=== PATIENT | female | born 1960 | race Caucasian/White ===

== ENCOUNTER 2016-12-15 20:01 | Inpatient (IN) | payer BC ==
[~2016-12-15] VITALS: Ht 160 cm; Wt 99.8 kg
[~2016-12-15 20:01] MED LIST: AMIT50TA3 PO; ASPI-1099 PO; DICY10CA13 PO; HYOS0.1286 PO; METO50TA5 PO; WARF2.5T73 PO; WARF5TAB6 PO
--- OUTSIDE RECORDS SUMMARY | 2016-12-15 20:06 | XMS REPORT | Continuity of Care Document ---
Author Author [facility] Organization [facility] Address Unknown Phone Unavailable Support Name Relationship Address Phone HUSSEIN NGUYỄN MD Caregiver [address] [place] [address] Unavailable PIOTR PANDYA MD Caregiver [address] [place] [address] Unavailable MALIAARLINE WASHINGTONELLE Next Of Kin [address] [place] [address] Insurance Providers Guarantor Nery Zepeda Address [address] [place] [address] Email [email or web address] [facility] Policy Number [id number] Subscriber's Name Nery Zepeda Relationship 18 Self Group Number [id number] Advance Directives Directive Response Recorded Date/Time Advanced Directives Type None 10/27/16 8:24pm Chief Complaint and Reason for Visit Chief Complaint Cough,Fever,Flu,URI Reason for Visit [id number] Problems Past Problems Medical Problem Onset Date Viral illness Unknown Medications Current Home Medications Medication Dose Units Route Directions Days Qty Instructions Start Date Amitriptyline Hcl 50 Mg Tablet 50 Mg Oral Bedtime 10/27/16 Aspirin (Gabriel Chewable) 81 Mg Tab.chew 81 Mg Oral Daily 10/27/16 Dicyclomine Hcl 10 Mg Capsule 10 Mg Oral Twice A Day 10/27/16 Hyoscyamine Sulfate 0.125 Mg Tablet 0.125 Mg Oral Twice A Day Metoprolol Tartrate 50 Mg Tablet 50 Mg Oral Twice Daily With Meals 10/27/16 Warfarin Sodium 2.5 Mg Tablet 2.5 Mg Oral Sumotuwethsa@Hs Warfarin Sodium 5 Mg Tablet 5 Mg Oral Fr@Hs 10/27/16 Social History Social History Problem Response Recorded Date/Time Onset Date Status Hx Substance Use No 10/27/2016 8:42pm Not Applicable Not Applicable Hx Alcohol Use Y OCCASIONALLY 10/27/2016 8:42pm Not Applicable Not Applicable Query Response Start Date Stop Date Smoking Status Former smoker Hospital Discharge Instructions No hospital discharge instructions. Plan of Care Discharge Date 10/27/16 9:40pm Disposition 01 DISCHARGED HOME, SELF-CARE Condition at Discharge Stable Instructions/Education Provided Viral Syndrome (ED) Prescriptions See Medication Section Referrals PIOTR PANDYA MD Address: [address] [place] [address] [phone] Additional Instructions/Education I do want you to take Tylenol and/or Motrin as needed for fever or body aches. Stay home from work until you are fever free for 24 hours without the use of the over the counter medications. If you are not improving in the next 2-3 days then please follow up with your primary care provider this week. Care Plan and Goals Physician Care Plan Problem:Viral Illness Goal: Follow up with primary care provider Instructions: Take medications and follow care plan as discussed/written Functional Status No functional status results. Allergies, Adverse Reactions, Alerts Allergen Type Severity Reaction Status Last Updated Diazepam Allergy Unknown Active 10/27/16 Doxycycline Allergy Unknown Active 10/27/16 adhesive tape Allergy Unknown Active 10/27/16 Immunizations Query Response on File Recorded Date/Time Influenza Vaccine Hx NOT REC'D 10/27/16 8:42pm Vital Signs Acute Vital Signs Vital Response Date/Time Temperature (Fahrenheit) 100.1 deg F (96.8 - 99.1) 10/27/2016 9:40pm Temperature (Calculated Celsius) 37.07326 degrees C (36.0 - 37.3) 10/27/2016 9:40pm Pulse Rate (adult) 123 bpm (60 - 100) 10/27/2016 9:40pm Respiratory Rate 18 breaths/min (10 - 20) 10/27/2016 9:40pm O2 Sat by Pulse Oximetry 98 % (90 - 100) 10/27/2016 9:40pm Blood Pressure 127/80 mm Hg 10/27/2016 9:40pm Results Laboratory Results Test Name Result Units Flags Reference Collection Date/Time Result Date/ Time Comments Influenza Type A Antigen NEGATIVE NEGATIVE 10/27/2016 8:45pm 2016 9:21pm Negative for Flu A protein antigen. Assay sensitivity is 90%. Influenza Type B Antigen NEGATIVE NEGATIVE 10/27/2016 8:45pm 2016 9:21pm Negative for Flu B protein antigen. Assay sensitivity is 90%. Procedures No known history of procedures. Encounters Encounter Location Arrival/Admit Date Discharge/Depart Date Attending Provider Departed Emergency Room [facility] 10/27/16 7:05pm 10/27/16 9: 40pm HUSSEIN NGUYỄN MD Recent Diagnosis
--- OUTSIDE RECORDS SUMMARY | 2016-12-15 20:06 | XMS REPORT | Referral Summary ---
Author Author [facility] Organization [facility] Address Unknown Phone Unavailable Care Team Providers Care Air Pollution Control Engineer Name Role Phone George Evans Primary Care Physician [phone] Encounter VC Date(s): 09/11/16 - 09/11/16 [facility] [address] [place] [address]- Discharge Diagnosis: Viral respiratory infection Discharge Diagnosis: Irritable bowel syndrome (disorder) Discharge Disposition: 01-Home or Self Care Attending Physician: Sabrina Babin APRN Admitting Physician: Sabrina Babin APRN Vital Signs Most recent to 1 oldest [Reference Range]: Temperature Tympanic 36.6 degC [36.6-38.1 degC] (09/11/16 9:03 AM) Peripheral Pulse 64 bpm Rate [60-100 bpm] (09/11/16 9:03 AM) Blood Pressure 122/80 mmHg [90-140/60-90 mmHg] (09/11/16 9:03 AM) Problem List Condition Effective Dates Status Health Status Informant 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 ) Chronic renal Resolved failure syndrome (disorder)(Confirmed ) Insomnia Resolved (disorder)(Confirmed ) Irritable bowel Active syndrome (disorder)(Confirmed ) Mitral valve Active disorder (disorder)(Confirmed ) Obesity(Confirmed) Active patient Obstructive sleep Active apnea syndrome (disorder)(Confirmed ) Allergies, Adverse Reactions, Alerts Substance Reaction Severity Status diazepam Hives/Skin Rash Active sweating/hives/rash doxycycline Hives/Skin Rash Active SEVERE N/V vomiting/hives/rash iodine RASH SOMETIMES - GETS PREMEDIC Active Tape Active Medications amitriptyline 50 mg oral tablet 50 mg 1 tabs, Oral, Bedtime (once a day), # 90 tabs, 0 Refill(s), Pharmacy: [id number], 1 tabs Oral Bedtime (once a day) Start Date: 09/11/16 Status: Ordered Coumadin Daily, as directed 2.5mg daily except for Fridays takes 5mg, 0 Refill(s) Start Date: 05/05/14 Status: Ordered dicyclomine 10 mg oral capsule 20 mg 2 caps, Oral, BID, # 60 caps, 6 Refill(s), Pharmacy: [id number], 2 caps Oral BID Start Date: 06/19/16 Status: Ordered Fasprin 81 mg, Oral, Daily, 0 Refill(s) Start Date: 05/05/14 Status: Ordered hyoscyamine 0 Refill(s) Start Date: 04/08/16 Status: Ordered metoprolol tartrate 25 mg oral tablet 25 mg 1 tabs, Oral, BID, # 180 tabs, 0 Refill(s) Start Date: 06/19/16 Status: Ordered Results No data available for this section Immunizations Given and Recorded Vaccine Date Status Refusal Reason influenza virus vaccine, inactivated 09/13/14 Recorded tetanus-diphth toxoids (Td) adult/adol 09/13/14 Recorded Procedures Procedure Date Related Diagnosis Body Site Gallbladder operation Hernia repair Hysterectomy Valves of heart and adjacent structures operations1 Wrist repair 1Aortic valve Social History Social History Type Response Smoking Status Former smoker; Type: Cigarettes1 1quit 2 years ago Assessment and Plan Extracted from: Title: Office Visit Note-IBS/URI Author: Sabrina Babin APRN Date: Assessment/Plan 1.Irritable bowel syndrome (disorder) Primarilydiarrhea-type with occasional constipation. Recommend stopping desipramine and trying a low-dose amitriptyline to see if that will work better for her. May need to consider SSRI. Recommend probiotic daily. Recommend Lomotil on days where she is having waterylooser stools. MiraLAX if she is feeling more constipated. Encourage her to monitor her diet and drink choices to see if that affects her stools. She has had gallbladdersurgery in the past and discussed how We' re foods tend to cause increased diarrhea/urgencyafter cholecystectomies. Encourage daily activity and exercise. Follow-up in one month to let us know how things are going. 2.Viral respiratory infection Recommend symptomatic care.
--- OUTSIDE RECORDS SUMMARY | 2016-12-15 20:06 | XMS REPORT | Referral Summary ---
Author Author [facility] Organization [facility] Address Unknown Phone Unavailable Care Team Providers Care Machine Taper Name Role Phone George Evans Primary Care Physician [phone] Encounter VC Date(s): 11/05/16 - 11/05/16 [facility] [address] [place] [address]- Discharge Diagnosis: Irritable bowel syndrome (disorder) Discharge Disposition: 01-Home or Self Care Attending Physician: Sabrina Babin APRN Admitting Physician: Sabrina Babin APRN Vital Signs Most recent to 1 oldest [Reference Range]: Temperature Tympanic 36.2 degC [36.6-38.1 degC] *LOW* (11/05/16 9:36 AM) Peripheral Pulse 68 bpm Rate [60-100 bpm] (11/05/16 9:36 AM) Blood Pressure 130/82 mmHg [90-140/60-90 mmHg] (11/05/16 9:36 AM) Problem List Condition Effective Dates Status [...] day), # 90 tabs, 0 Refill(s), Pharmacy: [id number], 1 tabs Oral Bedtime (once a day) Start Date: 09/11/16 Status: Ordered Coumadin Daily, as directed 2.5mg daily except for Fridays takes 5mg, 0 Refill(s) Start Date: 05/05/14 Status: Ordered dicyclomine 10 mg oral capsule 20 mg 2 caps, Oral, BID, # 60 caps, 6 Refill(s), Pharmacy: [id number], 2 caps Oral BID Start Date: 06/19/16 Status: Ordered Fasprin 81 mg, Oral, Daily, 0 Refill(s) Start Date: 05/05/14 Status: Ordered metoprolol tartrate 25 mg oral tablet 25 mg 1 tabs, Oral, BID, # 180 tabs, 0 Refill(s) Start Date: 06/19/16 Status: Ordered Results No data available for this section Immunizations Given and Recorded Vaccine Date Status Refusal Reason influenza virus vaccine, inactivated 09/13/14 Recorded tetanus-diphth toxoids (Td) adult/adol 09/13/14 Recorded Procedures Procedure Date Related Diagnosis Body Site Colonoscopy 06/17/10 Gallbladder operation Hernia repair Hysterectomy Valves of heart and adjacent structures operations1 Wrist repair 1Aortic valve Social History Social History Type Response Smoking Status Former smoker; Type: Cigarettes1 1quit 2 years ago Assessment and Plan Extracted from: Title: Office Visit Note-IBS Author: Sabrina Babin APRN Date: 11/05/16 Assessment/Plan 1.Irritable bowel syndrome (disorder) Discussed with the patient thatindeed IBS is afrustrating issue. Management starts with the dietary controlespecially after gallbladder removal. Very important to avoid high saturated fatmealsif she wants to avoid bowel urgency and loose stools. Encourage her to increase the overall fiber in her diet. Recommend starting MiraLAXhalf to one capful daily. Use consistently. Encourage fluid/water intake to avoid constipation. She did use Linzess for 2-3 days and hadloose stools related to that but did not stay on it for any period of time. Continue amitriptyline. Follow up if above not helpful.
--- OUTSIDE RECORDS SUMMARY | 2016-12-15 20:06 | XMS REPORT | Referral Summary ---
Author Author [facility] Organization [facility] Address Unknown Phone Unavailable Care Team Providers Care Soft Iron Inspector Name Role Phone George Evans Primary Care Physician [phone] Encounter VC Date(s): 06/19/16 - 06/19/16 [facility] [address] [place] [address]- Discharge Diagnosis: Mitral valve disorder (disorder) Discharge Diagnosis: Irritable bowel syndrome (disorder) Discharge Diagnosis: Thumb tendonitis Discharge Disposition: 01-Home or Self Care Attending Physician: Albert Evans MD Admitting Physician: Albert Evans MD Vital Signs Most recent to 1 oldest [Reference Range]: Temperature Tympanic 36.0 degC [36.6-38.1 degC] *LOW* (06/19/16 8:54 AM) Peripheral Pulse 76 bpm Rate [60-100 bpm] (06/19/16 8:54 AM) Respiratory Rate 16 br/min [14-20 br/min] (06/19/16 8:54 AM) Blood Pressure 140/92 mmHg [90-140/60-90 mmHg] (06/19/16 8:54 AM) Problem List Condition Effective Dates Status [...] - GETS PREMEDIC Active Tape Active Medications Coumadin Daily, as directed 2.5mg daily except for Fridays takes 5mg, 0 Refill(s) Start Date: 05/05/14 Status: Ordered desipramine Oral, 0 Refill(s) Start Date: 04/08/16 Status: Ordered dicyclomine 10 mg oral capsule 20 mg 2 caps, Oral, BID, # 60 caps, 6 Refill(s), Pharmacy: [id number], 2 caps Oral BID Start Date: 06/19/16 Status: Ordered Fasprin 81 mg, Oral, Daily, 0 Refill(s) Start Date: 05/05/14 Status: Ordered hyoscyamine 0 Refill(s) Start Date: 04/08/16 Status: Ordered meloxicam 15 mg oral tablet 15 mg 1 tabs, Oral, Daily, # 30 tabs, 0 Refill(s), Pharmacy: [id number], 1 tabs Oral Daily Start Date: 06/19/16 Status: Ordered metoprolol tartrate 25 mg oral tablet 25 mg 1 tabs, Oral, BID, # 180 tabs, 0 Refill(s) Start Date: 06/19/16 Status: Ordered Results No data available for this section Immunizations No data available for this section Procedures Procedure Date Related Diagnosis Body Site Gallbladder operation Hernia repair Hysterectomy Valves of heart and adjacent structures operations1 Wrist repair 1Aortic valve Social History Social History Type Response Smoking Status Former smoker; Type: Cigarettes1 1quit 2 years ago Assessment and Plan Extracted from: Title: Office Visit Note Author: Albert Evans MD Date: 06/19/16 Assessment/Plan 1.Irritable bowel syndrome (disorder) I reviewed her medications I recommended continuing those without change. She may use intermittent MiraLAX orImodium as neededdepending onwhether she may be having some constipation or diarrhea. I've encouraged her to follow-up on a every 6 month basis. 2.Mitral valve disorder (disorder) She sees her water analyst routinely and he follows her INR is no change in current treatment at this time. 3.Thumb tendonitis I've recommended trying some [id number] mg a day for the2-3 weeks. If not improving she should let us know. Perhaps some physical therapy would be appropriate and helpful. Warned that meloxicam can cause some stomach irritation I encouraged food and if it bothers her stomach at all especially in light of her anticoagulation therapy she should discontinue and let us know.
--- OUTSIDE RECORDS SUMMARY | 2016-12-15 20:06 | XMS REPORT | Continuity of Care Document ---
Author Author [facility] Organization [facility] Address Unknown Phone Unavailable Allergies Active Description Code Type Severity Reaction Onset Reported/Identified Relationship to Patient Clinical Status Yes No Allergy Information Drug Allergy 07/03/2010 Yes adhesive tape Drug Allergy REDAT SITE, SOMETIMES BLISTER 06/13/2012 Yes adhesive tape Drug Allergy N/A REDAT SITE, SOMETIMES BLISTER 06/13/2012 Yes doxycycline Drug Allergy SEVERE N/V 06/13/2012 Yes doxycycline Drug Allergy N/A SEVERE N/V 06/13/2012 Yes IV Contrast Drug Allergy RASH SOMETIMES - GETS PREMEDIC 06/13/2012 Yes IV Contrast Drug Allergy N/A RASH SOMETIMES - GETS PREMEDIC 06/13/2012 Yes Valium Drug Allergy PROFUSE SWEATING 06/13/2012 Yes Valium Drug Allergy N/A PROFUSE SWEATING 06/13/2012 Yes No Known Food Allergies Food Allergy 01/04/2013 Yes No Known Food Allergies Food Allergy N/A N/A 08/22/2013 Yes diazepam diazepam Drug Allergy Severe DIAPHORESIS 10/03/2014 Yes doxycycline doxycycline Drug Allergy Moderate GI UPSET WITH VOMITING 10/03/2014 Yes Iodinated Contrast Media - IV Dye Iodinated Contrast Media - IV Dye Drug Allergy Moderate HIVES/ITCHING 10/03/2014 Yes doxycycline Drug Allergy N/A N/A 11/29/2014 Yes Valium Drug Allergy N/A N/A 11/29/2014 Yes diazepam diazepam Drug Allergy Severe DIAPHORESIS 08/18/2015 Yes doxycycline doxycycline Drug Allergy Moderate GI UPSET WITH VOMITING 08/18/2015 Yes Iodinated Contrast Media - IV Dye Iodinated Contrast Media - IV Dye Drug Allergy Moderate HIVES/ITCHING 08/18/2015 Medications Problems Date Dx Coded Attending Type Code Diagnosis Diagnosed By 05/27/2012 Bruce Jimenez MD Final V72.83 PREOP EXAMINATION NEC 06/13/2012 Bruce Jimenez MD Final 424.1 AORTIC VALVE DISORDER 06/13/2012 Bruce Jimenez MD Final V72.63 PRE-PX LABORATORY EXAM 06/13/2012 Bruce Jimenez MD Final V72.81 PREOP CV EXAM 06/13/2012 Bruce Jimenez MD Final V72.83 PREOP EXAMINATION NEC 06/14/2012 BLESSING AVILA DO Final 285.1 ACUTE POSTHEMOR ANEMIA 06/14/2012 BLESSING AVILA DO Final 305.1 TOBACCO USE DISORDER 06/14/2012 BLESSING AVILA DO Final 327.23 OBSTRUCTIVE SLEEP APNEA 06/14/2012 BLESSING AVILA DO Final 401.9 HYPERTENSION NOS 06/14/2012 BLESSING AVILA DO Final 424.1 AORTIC VALVE DISORDER 06/14/2012 BLESSING AVILA DO Final 427.31 ATRIAL FIBRILLATION 06/14/2012 BLESSING AVILA DO Final 564.00 CONSTIPATION NOS 06/14/2012 BLESSING AVILA DO Final 564.1 IRRITABLE BOWEL SYNDROME 01/04/2013 Javier Bains DO Final 272.0 PURE HYPERCHOLESTEROLEM 01/04/2013 Javier Bains DO Final 491.9 CHRONIC BRONCHITIS NOS 01/04/2013 Javier Bains DO Final 842.00 WRIST SPRAIN NOS 01/04/2013 Javier Bains DO Final 923.21 CONTUSION OF WRIST 01/04/2013 Javier Bains DO Admitting 959.3 ELB/FOREARM/WR INJ NEC 01/04/2013 Javier Bains DO External E849.0 HOME ACCIDENTS 01/04/2013 Javier Bains DO External E885.9 FALL FROM TRIPPING NEC 01/04/2013 Javier Bains DO Final V43.3 HEART VALVE REPL NEC 08/22/2013 Griffin Vogel MD Final 401.9 HYPERTENSION NOS 08/22/2013 Griffin Vogel MD Final 429.9 HEART DISEASE NOS 08/22/2013 Griffin Vogel MD Final 786.52 PAINFUL RESPIRATION 08/22/2013 Griffin Vogel MD Final 789.02 LUQ ABDOMINAL PAIN 08/22/2013 Griffin Vogel MD Admitting 789.09 ABDOMINAL PAIN-SITE NEC 08/22/2013 Griffin Vogel MD Final V43.3 HEART VALVE REPL NEC 01/02/2014 Albert Khan MD 462 ACUTE PHARYNGITIS 01/02/2014 Albert Khan MD Final 490 BRONCHITIS NOS 01/02/2014 Albert Khan MD Admitting 786.2 COUGH 01/02/2014 Albert Khan MD Final 787.01 NAUSEA W VOMITING Procedures Code Description Performed By Performed On 35. REPL AORTIC VALVE NEC Tony CHEUNG, Bruce Hines 06/14/2012 39.61 EXTRACORPOREAL CIRCULAT Bruce Jimenez MD 06/14/2012 61713 X-RAY EXAM OF ANKLE 11/29/2014 [id number] MRI LOWER EXTREMITY W/O DYE 12/25/2014 Orthopedi Orthopaedic Surgery 04/16/2015 Results Test Result Range PROTHROMBIN TIME WITH INR - 06/07/15 16:40 INTERNATIONAL NORMAL RATIO 3.1 0.9-1.1 PROTHROMBIN TIME 35.8 sec 9.3-12.2 Microbiology CBC W/DIFF - 06/07/15 16:48 EOSINOPHIL # 0.2 k/cumm 0.1-0.5 EOSINOPHIL % 2 % 2-4 GRANULOCYTE # 4.5 k/cumm 2.0-9.0 GRANULOCYTE % 63 % 50-75 LYMPHOCYTE # 2.0 k/cumm 1.0-4.0 LYMPHOCYTE % 28 % 20-30 MEAN CELL HGB 27.6 pg 27.0-33.0 MEAN CELL HGB CONCENTRATION 32.3 g/dL 32.0-37.0 MEAN CELL VOLUME 85.4 fl 80.0-100.0 MONOCYTE # 0.4 k/cumm 0.1-1.0 MONOCYTE % 6 % 4-6 RED BLOOD CELL 4.60 m/cumm 4.00-6.00 RED CELL DISTRIBUTION WIDTH 14.6 % 11.0- 15.6 WHITE BLOOD CELL 7.1 k/cumm 5.0-10.0 HEMOGLOBIN 12.7 gm/dL 12.0-16.0 HEMATOCRIT 39.3 % 37.0-47.0 PLATELET COUNT 233 k/cumm 150-400 Microbiology PROTHROMBIN TIME WITH INR - 12/16/15 23:55 INTERNATIONAL NORMAL RATIO 4.0 0.9-1.1 PROTHROMBIN TIME 46.3 sec 9.3-12.2 Encounters ACCT No. Visit Date/Time Discharge Status Pt. Type Provider Facility Loc./Unit Complaint [id number] 01/02/2014 11:21:00 2013 13:25:00 DIS Emergency Bill CHEUNG, Albert Alegria [facility] [id number] 08/22/2013 08:25:00 2012 11:03:00 DIS Emergency Jaspreet CHEUNG, Griffin Alegria [facility] [id number] 01/04/2013 08:25:00 2012 10:30:00 DIS Emergency Javier Bains DO [facility] on [address] [id number] 06/14/2012 04:55:00 2011 13:32:00 DIS Inpatient BLESSING AVILA DO Via [address] [id number] 06/13/2012 05:00:00 2011 23:59:59 CLS Outpatient Bruce Jimenez MD [facility] [id number] 05/27/2012 10:55:00 2011 23:59:59 CLS Outpatient Bruce Jimenez MD [facility]
[2016-12-15] MEDS ORDERED: METO25TA6 PO (20:21)
[2016-12-15] MEDS ORDERED: LACT1CAP73 PO (20:22)
--- OUTSIDE RECORDS SUMMARY | 2016-12-15 21:36 | XMS REPORT | Continuity of Care Document ---
Author Author [facility] Organization [facility] Address Unknown Phone Unavailable Allergies Active Description [...] 39.61 EXTRACORPOREAL CIRCULAT Bruce Jimenez MD 06/14/2012 [id number] X-RAY EXAM OF ANKLE 11/29/2014 [id number] MRI LOWER EXTREMITY W/O DYE 12/25/2014 Orthopedi [...] Status Pt. Type Provider Facility Loc./Unit Complaint [id number] 01/02/2014 11:21:00 2013 13:25:00 DIS Emergency Bill CHEUNG, Albert Alegria [facility] [id number] 08/22/2013 08:25:00 2012 11:03:00 DIS Emergency Jaspreet CHEUNG, Griffin Alegria [facility] [id number] 01/04/2013 08:25:00 2012 10:30:00 DIS Emergency Javier Bains DO [facility] on [address] [id number] 06/14/2012 04:55:00 2011 13:32:00 DIS Inpatient BLESSING AVILA DO Via [address] [id number] 06/13/2012 05:00:00 2011 23:59:59 CLS Outpatient Bruce Jimenez MD [facility] [id number] 05/27/2012 10:55:00 2011 23:59:59 CLS Outpatient Bruce Jimenez MD [facility]
--- NOTE | 2016-12-15 21:37 | ERPDOC ---
Departure Disposition Decision Date: Dec 15, 2016 Disposition Decision Time: 22:45 (CHARLETTEMAME AYALA APRN) Disposition: 02 TO [facility] Impression Impression (HIDALGORYNE [place] APRN) Impression: Primary Impression: GI bleed GI bleed type/associated pathology: unspecified gastrointestinal hemorrhage type Qualified Codes: K92.2 - Gastrointestinal hemorrhage, unspecified Additional Impression: Anemia Anemia type: unspecified type Qualified Codes: D64.9 - Anemia, unspecified Severity: Moderate (MAME GALLAGHER APRN) Condition: Stable Seen By: Mid-level only (MAME GALLAGHER APRN) Referrals: PIOTR PANDYA MD (Family) Problems/Meds/Labs Reviewed?: Yes Medications reviewed and manag: Yes (MAME GALLAGHER APRN) Follow up care ordered?: Yes Mental Status: Alert, Oriented (MAME GALLAGHER APRN) Scripts Ferrous Sulfate (Feosol) 325 Mg Tablet 1 TAB PO WB, #60 TAB BEST WITH FOOD. Prov: MEJIA CHUN MD 12/18/16 Polyethylene Glycol 3350 (Miralax) 17 Gm Powd.pack 1 PACKET PO DAILY, #30 PACKET 3 Refills Prov: MEJIA CHUN MD 12/18/16 HPI - General Medical General Chief Complaint: Acute Medical Problem Stated Complaint: BLOODY STOOLS Time Seen by Provider: 21:21 Source: patient Exam Limitations: no limitations (CHARLETTEMAME AYALA APRN) Time Seen by Provider: 21:21 (JANUARY,[facility]) HPI - General Medical Initial Comments She had 3 stools yesterday that were bloody. She was evaluated in the office. Her INR was 2.7 and her hemoglobin as 11.0. Today has had 7 bloody stools. Has pictures on her phone showing stools with bright red blood in the water. She is noted to be pale but states that she always is pale. She has had some diaphoresis with her BM but denies any fever/vomiting/abdominal pain. She has never had trouble with a GI bleed in the past. Occurred At: home Onset: Gradual Duration: 12-24 hrs Severity: moderate Associated Symptoms: diaphoresis (while having a BM), DENIES: chest pain, cough , fever/chills, headaches, loss of appetite, malaise, nausea/vomiting, rash, seizure, shortness of breath, syncope, weakness Hx of Similar Symptoms: No (NOLD,MAME N GLOBAL TECHNICAL WRITER) Allergies: Coded Allergies: digoxin (Verified Allergy, Intermediate, "got toxic", 12/15/16) adhesive tape (Verified Allergy, Unknown, 12/15/16) diazepam (Verified Allergy, Unknown, 12/15/16) doxycycline (Verified Allergy, Unknown, 12/15/16) Past History Past Medical History Cardiac: A-fib, other (NOLD,MAME N GLOBAL TECHNICAL WRITER) Surgical History General: gallbladder Cardiac: valve replacement Reproductive/: hysterectomy Joint: other (NOLD,MAME N GLOBAL TECHNICAL WRITER) Family History Family History: Negative (NOLD,MAME N GLOBAL TECHNICAL WRITER) Social History Smoking Status: Never smoker Substance Use Type: does not use Alcohol Intake: none (NOLD,MAME N GLOBAL TECHNICAL WRITER) Review of Systems Constitutional Constitutional: chills, dizziness, DENIES: fatigue, fever, weakness (NOLD, MAME N GLOBAL TECHNICAL WRITER) Cardiovascular Cardiac: DENIES: chest pain, orthopnea Rhythm/Rate: DENIES: irregular beat, palpitations Vascular: DENIES: pedal edema, unilateral swelling (NOLD,MAME N GLOBAL TECHNICAL WRITER) Pulmonary Respiratory: DENIES: cough, dyspnea, sputum, tachypnea (NOLD,MAME N GLOBAL TECHNICAL WRITER) GI Upper Abdomen: DENIES: nausea, pain, vomiting Lower Abdomen: blood in stool, DENIES: constipation, diarrhea, pain (NOLD, MAME N GLOBAL TECHNICAL WRITER) Integumentary Skin: DENIES: rash (NOLD,MAME N GLOBAL TECHNICAL WRITER) Neurological General: DENIES: headache, numbness, tingling, weakness (NOLD,MAME N GLOBAL TECHNICAL WRITER) Physical Exam General General Nourishment: well nourished, well developed, appears stated age, no acute distress, adult General Body Habitus: well groomed (NOLD,MAME N GLOBAL TECHNICAL WRITER) Vitals and Pain Weight: Kilograms: 96.800 Height (feet): 5 Height (inches): 4.00 Triage Pain Scale: (NOLD,MAME N GLOBAL TECHNICAL WRITER) RN VS reviewed by Provider: Yes (NOLD,MAME N GLOBAL TECHNICAL WRITER) Normal Exams: Neck: Full range of motion, without adenopathy, JVD, bruits or thyromegaly Chest/Resp: Clear all [place], with good airflow, and symmetry bilaterally CV: Regular rate and rhythm, without murmur or gallop, Pulses 2+ all extremities, capillary refill, <2 seconds all ext., no pedal edema noted Abdomen: Bowel sounds positive, soft, non-tender, non-distended, no hepatosplenomegaly, masses or bruits noted Lymphatic: No lymphadenopathy, or lymphedema noted Integumentary: No rashes, hives, or bruising noted Neurologic: Patient is alert, and oriented Psychiatric: Patient exhibits, appropriate attention, emotion and affect (NOLD,MAME N GLOBAL TECHNICAL WRITER) Abdomen Rectal: FOUND: gross blood, other (FOB positive), sphincter normal tone, NOT FOUND: external hemorrhoids, internal hemorrhoids (NOLD,MAME N GLOBAL TECHNICAL WRITER) Differential Diagnoses Considering: Other (GI bleed, anemia, hypovolemia, hemorrhoid) (NOLUCY,MAME N GLOBAL TECHNICAL WRITER) Progress Results/Orders Orders Procedure Category Date Status Time INR LAB 12/15/16 Complete Iv Lock (Ed Only) EDM 12/15/16 Transmitted 21:31 Cbc W/Auto LAB 12/15/16 Complete Diff-Reflex Manual Bmp - Basic Metabolic LAB 12/15/16 Complete Panel Normal Saline (Normal PHA 12/15/16 Complete Saline Iv) 21:45 Place In Facility As: ADMIT 12/15/16 Transmitted Physician Consult CONS 12/15/16 Transmitted (JANUARY,ELLI M DO) Lab Results Laboratory Tests Test 12/15/16 22:10 White Blood Count 10.3T/MM3 Red Blood Count 3.09M/MM3 Hemoglobin 8.6GM/DL Hematocrit 26.8% Mean Corpuscular Volume 86.7UM3 Mean Corpuscular Hemoglobin 27.8UUG Mean Corpuscular Hemoglobin Concent 32.1GM/DL RDW Standard Deviation 46.7FL Platelet Count 271T/MM3 Mean Platelet Volume 10.6UM3 Immature Granulocyte % (Auto) 0.4% Neutrophils (%) (Auto) 63.2% Lymphocytes (%) (Auto) 30.5% Monocytes (%) (Auto) 4.8% Eosinophils (%) (Auto) 0.8% Basophils (%) (Auto) 0.3% Absolute Immature Granulocyte (auto 0.04T/MM3 Absolute Neutrophils (auto) 6.5T/MM3 Absolute Lymphocytes (auto) 3.2T/MM3 Absolute Monocytes (auto) 0.5T/MM3 Absolute Eosinophils (auto) 0.1T/MM3 Absolute Basophils (auto) 0.0T/MM3 Prothromb Time International Ratio 2.86 Turbidity < 20 Sodium Level 141MEQ/L Potassium Level 4.3MEQ/L Chloride Level 107MEQ/L Carbon Dioxide Level 25MEQ/L Anion Gap 9MEQ/L Blood Urea Nitrogen 29.0MG/DL Creatinine 1.1MG/DL Glomerular Filtration Rate Calc 52 BUN/Creatinine Ratio 26RATIO Glucose Level 125MG/DL Calculated Osmolality 278MOSM/KG Calcium Level 8.7MG/DL Icterus Index < 2 Chemistry Specimen Hemolysis < 15 ( ) Medications Current ED Medications Sodium Chloride (Normal Saline IV) 1,000 ml @ 1,000 mls/hr Q1H ONCE IV Last administered on 12/15/16 22:15; Start 12/15/16 at 21:45; Stop 12/15/16 at 22:44; Status DC () Progress Progress WBC is normal. Hgb is down to 8.6 today from 11.0 yesterday. BMP is normal. INR is 2.8 today. Did discuss findings with Dr Vargas. He will accept patient for admission. Concern regarding the Warfarin that she takes due to mechanical valve replacement makes tapering Warfarin down risky. Notified Dr Goss of admission and probable need for scope tomorrow. (MAME GALLAGHER APRN) MAME GALLAGHER APRN Dec 15, 2016 21:37 JANUARY,[facility] Dec 21, 2016 03:41
[2016-12-15] MEDS ORDERED: NORMAL SALINE 1,000 ML IV ONE (21:45)
--- NOTE | 2016-12-15 22:05 | NUR ---
IV ATTEMPT 2 UNSUCCESSFUL IV PLACEMENT ATTEMPTS BY THIS NURSE, 2ND RN WILL ATTEMPT.
[2016-12-15 22:23] LABS: BASOPHILS % (AUTO) 0.3 % (0-2); EOSINOPHILS # (AUTO) 0.1 T/MM3 (0-0.5); EOSINOPHILS % (AUTO) 0.8 % (0-4); HCT - HEMATOCRIT 26.8 % (36-46); HGB - HEMOGLOBIN 8.6 GM/DL (12-16); IMMATURE GRANULOCYTE # (AUTO) 0.04 T/MM3 (0.00-0.03); IMMATURE GRANULOCYTE % (AUTO) 0.4 % (0.0-0.5); LYMPHOCYTES # (AUTO) 3.2 T/MM3 (1-4.8); LYMPHOCYTES % (AUTO) 30.5 % (23-45); MEAN CORPUSCULAR HGB 27.8 UUG (26-34); MEAN CORPUSCULAR HGB CONC(MCHC 32.1 GM/DL (31-37); MEAN CORPUSCULAR VOLUME 86.7 UM3 (80-100); MEAN PLATELET VOLUME 10.6 UM3 (9.4-12.4); MONOCYTES # (AUTO) 0.5 T/MM3 (0-0.8); MONOCYTES % (AUTO) 4.8 % (0-9.0); NEUTROPHILS #(AUTO)-ABSOLUTE 6.5 T/MM3 (1.8-7.7); NEUTROPHILS % (AUTO) 63.2 % (33-66); RED BLOOD COUNT 3.09 M/MM3 (4.00-5.20); WBC - WHITE BLOOD COUNT 10.3 T/MM3 (4.5-11.0)
[2016-12-15 22:27] LABS: INR 2.86 (0.76-1.04); PROTHROMBIN TIME 31.2 SEC (9.31-12.49)
[2016-12-15 22:32] LABS: ANION GAP 9 MEQ/L (5-15); BUN/CREATININE RATIO 26 RATIO (6-26); CALCIUM 8.7 MG/DL (8.4-10.2); CHLORIDE 107 MEQ/L (98-107); CO2 - CARBON DIOXIDE 25 MEQ/L (22-30); CREATININE 1.1 MG/DL (0.7-1.2); GLOMERULAR FILTRATION RATE 52; GLUCOSE 125 MG/DL (65-110); POTASSIUM 4.3 MEQ/L (3.6-5); SODIUM 141 MEQ/L (134-144)
[2016-12-15] MEDS ORDERED: NORMAL SALINE 500 ML IV SCH (23:01)
--- OUTSIDE RECORDS SUMMARY | 2016-12-15 23:05 | XMS REPORT | Continuity of Care Document ---
Author Author [facility] Organization [facility] Address Unknown Phone Unavailable Allergies [...] 39.61 EXTRACORPOREAL CIRCULAT Bruce Jimenez MD 06/14/2012 [id number] X-RAY EXAM OF ANKLE 11/29/2014 [id number] MRI LOWER EXTREMITY W/O DYE 12/25/2014 Orthopedi [...] Status Pt. Type Provider Facility Loc./Unit Complaint [id number] 01/02/2014 11:21:00 2013 13:25:00 DIS Emergency Bill CHEUNG, Albert Alegria [facility] [id number] 08/22/2013 08:25:00 2012 11:03:00 DIS Emergency Jsapreet CHEUNG, Griffin Alegria [facility] [id number] 01/04/2013 08:25:00 2012 10:30:00 DIS Emergency Javier Bains DO [facility] on Rakesh WILLAMS [id number] 06/14/2012 04:55:00 2011 13:32:00 DIS Inpatient BLESSING AVILA DO Via [address] [id number] 06/13/2012 05:00:00 2011 23:59:59 CLS Outpatient Bruce Jimenez MD [facility] [id number] 05/27/2012 10:55:00 2011 23:59:59 CLS Outpatient Bruce Jimenez MD [facility]
[2016-12-15 23:30] LABS: BLOOD, URINE NEGATIVE (NEGATIVE); COLOR,URINE YELLOW (YELLOW); LEUKOCYTE ESTERASE ,URINE NEGATIVE (NEGATIVE); NITRITE,URINE NEGATIVE (NEGATIVE); UROBILINOGEN,URINE 0.2 EU/DL (NORMAL)
[2016-12-15 23:32] LABS: HGB - HEMOGLOBIN 8.1 GM/DL (12-16)
--- NOTE | 2016-12-15 23:53 | NUR ---
REPORT GIVEN TO DANO LANCASTER AT THIS TIME.
[2016-12-16] VITALS (10 sets, daily range): BP systolic 104–126; BP diastolic 59–72; PULSE 76–118; RESP 16–22; TEMP 76.1–97.8; O2SAT 98–100; Ht 160 cm; Wt 99.8 kg
--- NOTE | 2016-12-16 00:10 | NUR ---
DEPART PT IS TRANSFERRED VIA WHEELCHAIR TO ROOM 148 AT THIS TIME.
--- NOTE | 2016-12-16 00:10 | NUR ---
ADMIT ARRIVED TO MEDICAL RM 148 FROM ED VIA WHEELCHAIR, PT'S DAUGHTER IS AT BEDSIDE.
--- NOTE | 2016-12-16 00:30 | NUR ---
ADMIT PT ADMITTED FROM ED PER W/C TO ROOM 148. DAUGHTER WITH PT AND PLANS TO STAY THE NIGHT. ASSESSMENT COMPLETED AND ORIENTED TO BED AND ROOM. RECLINER PROVIDED FOR DAUGHTER TO SLEEP IN. PT ANXIOUS CONCERNING HER MEDICATION. STATES SHE TAKES IT THE SAME TIME EVERY DAY. PLAN OF CARE REVIEWED WITH PT. TEACHING COMPLETED WHY SHE NEEDS TO BE NPO. PT VERBALIZED UNDERSTANDING, SHE CONTINUES TO ASK WHEN SHE COULD TAKE HER MEDICATION. THIS WAS REVIEWED WITH NPO TEACHING. CALL LIGHT WITHIN REACH. BED ALARM ON.
[2016-12-16] MEDS: NORMAL SALINE 1,000 ML IV SCH ×3 (00:42→20:20)
--- NOTE | 2016-12-16 01:20 | HPPDOC ---
MANDY WEBER MD 12/16/16 0111: HPI - Adult Date DATE: 12/16/16 TIME: 02:08 General Chief Complaint: blood in stool History of Present Illness This is a 56-year-old female with a history of congenital aortic stenosis. The patient underwent a mechanical aortic valve replacement in 2011. The patient has been on chronic Coumadin anticoagulation since then. The patient had onset of bloody stools yesterday. At least 5-6. The patient was seen in her primary care physicians office and had a hemoglobin checked at that time which was 11. The patient INR was noted to be 2.7 at that time. The patient was discharged back home to be followed in continued outpatient setting. Since that time the patients had several more bloody stools. The patient contacted her primary care physician who advised her to come to the emergency department. In the emergency department the patients vital signs are relatively stable. The patients hemoglobin is now a 8.6. The patients INR is 2.8. The patient has had no further stools in the emergency department setting. The patient will be admitted for further assessment of lower GI bleed. Patient reports that she had a colonoscopy approximately in 2009 with no identifiable disease. Prior to that the patient had also had a colonoscopy but the patients underwear when that occurred. Past Medical History Past Medical History congenital aortic stenosis atrial fibrillation Surgical History Patient's Surgical History: mechanical aortic valve 2011 cholecystectomy hiatal hernia repair tomas fundoplication BARRY right kne arthroscopic procedure and meniscus repair wrist surgery Current Medications Home Meds Reported Medications Lactobacillus Combination No.4 (Probiotic) 1 Each Capsule, 2 CAP PO BID 12/15/16 Metoprolol Tartrate (Metoprolol Tartrate) 25 Mg Tablet, 25 MG PO WB, TAB Take 1 tab, by mouth, one time a day (with breakfast). 12/15/16 Warfarin Sodium (Warfarin Sodium) 5 Mg Tablet, 5 MG PO Fr@HS 10/27/16 Warfarin Sodium (Warfarin Sodium) 2.5 Mg Tablet, 2.5 MG PO SuMoTuWeThSa@HS 10/27/16 Metoprolol Tartrate (Metoprolol Tartrate) 50 Mg Tablet, 50 MG PO HS 10/27/16 Dicyclomine HCl (Dicyclomine HCl) 10 Mg Capsule, 10 MG PO BID 10/27/16 Aspirin (Gabriel Chewable) 81 Mg Tab.chew, 81 MG PO DAILY 10/27/16 Amitriptyline HCl (Amitriptyline HCl) 50 Mg Tablet, 50 MG PO HS 10/27/16 Allergies: Coded Allergies: digoxin (Verified Allergy, Intermediate, "got toxic", 12/15/16) adhesive tape (Verified Allergy, Unknown, 12/15/16) diazepam (Verified Allergy, Unknown, 12/15/16) doxycycline (Verified Allergy, Unknown, 12/15/16) Family History Family History: sig cardiac disease on both sides no GI disease Social History Smoking Status: Former smoker Substance Use Type: does not use Alcohol Intake: occasionally Marital Status: Single Sexuality: male partner Housing: house Household Members: family Current Occupational Status: employed Advance Directives: No DPOA for Healthcare Only Review of Systems All Other Systems All Other Systems: Reviewed (remainder of 10-point ROS Neg.) Comments No headache, no change in vision, no ear pain, no sores in her mouth, no difficulty swallowing, no chest pain, is moderately short of breath with activity, patient denies any heart palpitations, patient denies any abdominal pain, no nausea vomiting, no abdominal cramping, stools are noted above, patient denies any focal weaknesses, a 10 point review systems carefully reviewed and otherwise negative except for outlined above Physical Exam General General Nourishment: well nourished, well developed, obese, apparent age, adult General Body Habitus: well groomed Vital Signs Vital Signs Date Time Temp Pulse Resp B/P Pulse Ox O2 Delivery O2 Flow Rate FiO2 12/16/16 00:43 118 104/69 12/16/16 00:33 16 98 Room Air 12/15/16 20:08 97.9 Height (Feet): 5 Height (Inches): 3.00 Telemetry Rhythm: Sinus Rhythm Eyes Brief: FOUND: EOMI Neck Brief: FOUND: midline, NOT FOUND: JVD, nuchal rigidity, other, spasm, tenderness, tracheal deviation Respiratory Brief: FOUND: clear all [place], equal bilaterally, NOT FOUND: other , rales, spasm, symmetrical, tenderness, wheezes Cardiovascular (brief) Cardiac Brief: FOUND: click, murmur, regular rate, regular rhythm, NOT FOUND: gallop, other, pedal edema, peripheral edema, rub Abdomen (brief) Abdominal Brief: FOUND: BS normo active x4, soft, NOT FOUND: distended, tender Musculoskeletal (brief) Musculoskeletal Brief: NOT FOUND: deformity, extremities move equally, loss of motion, other, spasm, tenderness Integumentary (brief) Integumentary Brief: FOUND: dry, pink, warm Neurologic (brief) Comments no focal deficit Neurologic RN Documented GCS Eye Opening: Verbal: Motor: Total: Psychiatric (brief) FOUND: alert, oriented Laboratory Laboratory Tests Test 12/15/16 22:10 12/15/16 22:50 12/15/16 23:23 White Blood Count 10.3T/MM3 Red Blood Count 3.09M/MM3 Hemoglobin 8.6GM/DL 8.1GM/DL Hematocrit 26.8% Mean Corpuscular Volume 86.7UM3 Mean Corpuscular Hemoglobin 27.8UUG Mean Corpuscular Hemoglobin Concent 32.1GM/DL RDW Standard Deviation 46.7FL Platelet Count 271T/MM3 Mean Platelet Volume 10.6UM3 Immature Granulocyte % (Auto) 0.4% Neutrophils (%) (Auto) 63.2% Lymphocytes (%) (Auto) 30.5% Monocytes (%) (Auto) 4.8% Eosinophils (%) (Auto) 0.8% Basophils (%) (Auto) 0.3% Absolute Immature Granulocyte (auto 0.04T/MM3 Absolute Neutrophils (auto) 6.5T/MM3 Absolute Lymphocytes (auto) 3.2T/MM3 Absolute Monocytes (auto) 0.5T/MM3 Absolute Eosinophils (auto) 0.1T/MM3 Absolute Basophils (auto) 0.0T/MM3 Prothromb Time International Ratio 2.86 Turbidity < 20 Sodium Level 141MEQ/L Potassium Level 4.3MEQ/L Chloride Level 107MEQ/L Carbon Dioxide Level 25MEQ/L Anion Gap 9MEQ/L Blood Urea Nitrogen 29.0MG/DL Creatinine 1.1MG/DL Glomerular Filtration Rate Calc 52 BUN/Creatinine Ratio 26RATIO Glucose Level 125MG/DL Calculated Osmolality 278MOSM/KG Calcium Level 8.7MG/DL Icterus Index < 2 Chemistry Specimen Hemolysis < 15 Urine Collection Type Cleancatch-midstream Urine Color Yellow Urine Turbidity Clear Urine pH 5.0 Urine Specific [place] 1.025 Urine Protein Negative Urine Glucose (UA) Negative Urine Ketones Negative Urine Blood Negative Urine Nitrite Negative Urine Bilirubin Negative Urine Urobilinogen 0.2EU/DL Urine Leukocyte Esterase Negative Urinalysis Comment Microscopic not ind. Assessment & Plan Assessment 1. Lower GI bleed acute present on admission: Differential diagnosis is diverticular bleed, polyp bleed, tumor, AV malformation, internal hemorrhoid. Clearly anticoagulation is contributing to this event. Bleeding seems to have slowed down. Admit. IV fluids. Hold anticoagulation at least overnight. If bleeding were to recur, consider nuclear bleeding scan to identify location of potential bleeding. Surgical consultation has been asked through the ER. Obviously there is no indication for an acute endoscopic procedure tonight. 2. Anemia of acute blood loss present on admission: Currently there is no indication for an acute transfusion. Well follow serial hemoglobins. If hemoglobin less than 8 will proceed with transfusion. If active bleeding will pursue transfusion. Repeat labs in the morning 3. Mechanical aortic valve chronic present on admission: At this time the patients had a significant bleed. We cannot safely anticoagulate this patient. Understand the risk of clot and stroke formation. We will discuss with surgery and/or cardiology in the morning. Ideally if we can identify source of bleeding, this can be directly dealt with. And subsequently patient can be restarted on anticoagulation. For purposes of tonight well hold Coumadin, will bridge, will repeat INR in the morning 4. HR fibrillation chronic present on admission: Patient on beta ami therapy for rate management. I was anticoagulated. At this time well monitor on telemetry. Hold beta ami for concern of blood pressure. Readdress in the morning 5. DVT prophylaxis: SCD 6. Gastric prophylaxis: PPI DVT Prophylaxis: SCD'S Code Status Full Code Hospital Course Summary Disclaimer The hospital course summary below is not to be considered part of the above Progress Note. MEJIA CHUN MD 12/16/16 0084: Past Medical History Current Medications Home Meds Reported Medications Lactobacillus Combination No.4 (Probiotic) 1 Each Capsule, 2 CAP PO BID 12/15/16 Metoprolol Tartrate (Metoprolol Tartrate) 25 Mg Tablet, 25 MG PO WB, TAB Take 1 tab, by mouth, one time a day (with breakfast). 12/15/16 Warfarin Sodium (Warfarin Sodium) 5 Mg Tablet, 5 MG PO Fr@HS 10/27/16 Warfarin Sodium (Warfarin Sodium) 2.5 Mg Tablet, 2.5 MG PO SuMoTuWeThSa@HS 10/27/16 Metoprolol Tartrate (Metoprolol Tartrate) 50 Mg Tablet, 50 MG PO HS 10/27/16 Dicyclomine HCl (Dicyclomine HCl) 10 Mg Capsule, 10 MG PO BID 10/27/16 Aspirin (Gabriel Chewable) 81 Mg Tab.chew, 81 MG PO DAILY 10/27/16 Amitriptyline HCl (Amitriptyline HCl) 50 Mg Tablet, 50 MG PO HS 10/27/16 Allergies: Coded Allergies: digoxin (Verified Allergy, Intermediate, "got toxic", 12/15/16) adhesive tape (Verified Allergy, Unknown, 12/15/16) diazepam (Verified Allergy, Unknown, 12/15/16) doxycycline (Verified Allergy, Unknown, 12/15/16) Assessment & Plan Assessment Dr. Weber's note reviewed. See supplemental H&P written later in the day. MANDY WEBER MD Dec 16, 2016 01:11 MEJIA CHUN MD Dec 16, 2016 18:23
[2016-12-16 06:55] LABS: BASOPHILS % (AUTO) 0.3 % (0-2); EOSINOPHILS # (AUTO) 0.1 T/MM3 (0-0.5); EOSINOPHILS % (AUTO) 0.9 % (0-4); HCT - HEMATOCRIT 21.4 % (36-46); HGB - HEMOGLOBIN 6.7 GM/DL (12-16); IMMATURE GRANULOCYTE # (AUTO) 0.03 T/MM3 (0.00-0.03); IMMATURE GRANULOCYTE % (AUTO) 0.4 % (0.0-0.5); LYMPHOCYTES # (AUTO) 2.5 T/MM3 (1-4.8); LYMPHOCYTES % (AUTO) 32.3 % (23-45); MEAN CORPUSCULAR HGB 27.2 UUG (26-34); MEAN CORPUSCULAR HGB CONC(MCHC 31.3 GM/DL (31-37); MEAN PLATELET VOLUME 10.6 UM3 (9.4-12.4); MONOCYTES # (AUTO) 0.4 T/MM3 (0-0.8); MONOCYTES % (AUTO) 4.9 % (0-9.0); NEUTROPHILS #(AUTO)-ABSOLUTE 4.7 T/MM3 (1.8-7.7); NEUTROPHILS % (AUTO) 61.2 % (33-66); RED BLOOD COUNT 2.46 M/MM3 (4.00-5.20); WBC - WHITE BLOOD COUNT 7.7 T/MM3 (4.5-11.0)
[2016-12-16 07:05] LABS: ANION GAP 9 MEQ/L (5-15); BUN/CREATININE RATIO 24 RATIO (6-26); CALCIUM 7.6 MG/DL (8.4-10.2); CHLORIDE 112 MEQ/L (98-107); CO2 - CARBON DIOXIDE 22 MEQ/L (22-30); CREATININE 0.9 MG/DL (0.7-1.2); GLOMERULAR FILTRATION RATE 65; GLUCOSE 114 MG/DL (65-110); POTASSIUM 3.9 MEQ/L (3.6-5); SODIUM 143 MEQ/L (134-144)
[2016-12-16 07:11] LABS: INR 2.71 (0.76-1.04); PROTHROMBIN TIME 29.5 SEC (9.31-12.49)
[2016-12-16] MEDS ORDERED: DiphenhydrAMINE 25 MG CAPSULE PO ONE (07:30)
[2016-12-16] MEDS ORDERED: PHYTONADIONE 10mg/ml (Adult) INJECTION SQ ONE ×2 (07:30→16:45)
[2016-12-16] MEDS ORDERED: ACETAMINOPHEN 500 MG TABLET PO ONE (07:30)
--- NOTE | 2016-12-16 08:02 | CONSPD ---
Consultation Info Date DATE: 12/16/16 TIME: 07:39 Date of Consultation: Dec 16, 2016 Attending Physician: SEUN Parekh Reason for Consultation: Rectal bleeding, anemia HPI - Adult Date DATE: 12/16/16 TIME: 07:39 General Chief Complaint: blood in stool History of Present Illness Per Dr. Goss Past Medical History Past Medical History Patient's Medical History: (1) Aortic valve replaced (2) HTN (hypertension) (3) Obesity (BMI 30-39.9) (4) Anemia (5) GI bleed (6) Atrial fibrillation (7) Congenital heart valve abnormality Surgical History Patient's Surgical History: heart cath 2011 mechanical aortic valve 2011 cholecystectomy tomas fundoplication lap assisted ovary sparing vag hysterectomy right kne arthroscopic procedure and meniscus repair wrist cartilage surgery Current Medications Home Meds Reported Medications Lactobacillus Combination No.4 (Probiotic) 1 Each Capsule, 2 CAP PO BID 12/15/16 Metoprolol Tartrate (Metoprolol Tartrate) 25 Mg Tablet, 25 MG PO WB, TAB Take 1 tab, by mouth, one time a day (with breakfast). 12/15/16 Warfarin Sodium (Warfarin Sodium) 5 Mg Tablet, 5 MG PO Fr@HS 10/27/16 Warfarin Sodium (Warfarin Sodium) 2.5 Mg Tablet, 2.5 MG PO SuMoTuWeThSa@HS 10/27/16 Metoprolol Tartrate (Metoprolol Tartrate) 50 Mg Tablet, 50 MG PO HS 10/27/16 Dicyclomine HCl (Dicyclomine HCl) 10 Mg Capsule, 10 MG PO BID 10/27/16 Aspirin (Gabriel Chewable) 81 Mg Tab.chew, 81 MG PO DAILY 10/27/16 Amitriptyline HCl (Amitriptyline HCl) 50 Mg Tablet, 50 MG PO HS 10/27/16 Allergies: Coded Allergies: digoxin (Verified Allergy, Intermediate, "got toxic", 12/15/16) adhesive tape (Verified Allergy, Unknown, 12/15/16) diazepam (Verified Allergy, Unknown, 12/15/16) doxycycline (Verified Allergy, Unknown, 12/15/16) Family History Family History: father - CAD paternal grandfather - heart disease does not know anything about her mother Social History Smoking Status: Former smoker Substance Use Type: does not use Alcohol Intake: occasionally Marital Status: Single Sexuality: male partner Housing: house Household Members: family Current Occupational Status: employed Current Occupation: [employer] Advance Directives: No DPOA for Healthcare Only GS Review of Systems Cardiovascular REPORTS other (AVR 2011) Gastrointestional REPORTS blood in stools (see HPI) Hematologic REPORTS easy bruising, REPORTS use of blood thinners 10-point Review of Systems otherwise negative except HPI GS Physical Exam Vital Signs Date Time Temp Pulse Resp B/P Pulse Ox O2 Delivery O2 Flow Rate FiO2 12/16/16 07:30 100 18 12/16/16 07:21 96.8 112/59 100 Room Air Height (Feet): 5 Height (Inches): 3.00 Weight (Kilograms): 97.500 BMI 38.2 Laboratory Laboratory Tests 12/15/16 22:10 12/16/16 06:34 Laboratory Tests 12/15/16 22:10 12/15/16 23:23 12/16/16 06:34 MEGHAN HOGAN APRN, CWS Dec 16, 2016 07:42
[2016-12-16] MEDS: PANTOPRAZOLE 40mg INJECTION IV SCH (08:10)
--- NOTE | 2016-12-16 10:38 | NUR ---
CM CM VISITED PT AND DAUGHTER. CM EXPLAINED ROLE AND PROVIDED CONTACT INFORMATION. PT DENIES NEEDS. PT PLANS TO RETURN HOME POST STAY AT [facility]. PT IS AWARE TO CONTACT CM IF NEEDS ARISE.
--- NOTE | 2016-12-16 10:45 | HPPDOC ---
FILEMON GARCIA V [employer] 12/16/16 1027: HPI - Adult Date DATE: 12/16/16 TIME: 10:19 General Chief Complaint: blood in stool History of Present Illness Patient is a 56 yr old female who started having bloody stools on Wednesday. She did see her primary care provider, Dr. Evans. At that time she was found to have hemoglobin of 11 and INR of 2.7. Patient is chronically anticoagulated on Coumadin due to a congenital call aortic stenosis and titanium valve replacement in 2011. She continued to have 6-7 bloody stools yesterday and presented to the emergency room last evening for further evaluation and treatment. In the ER, hemoglobin was found to be 8.6, RBCs 3.09, he the BBC is 10.3, hematocrit 26.8, platelet count 271. Sodium 141, potassium 4.3, BUN 29, creatinine 1.1, glucose 125. INR at that time was 2.86. Urinalysis was obtained that was unremarkable. She initially was found to be tachycardic up to 118, however, has continued in sinus rhythm. Admission blood pressure was stable 116/72. Room air saturations 99%. Given findings of acute GI bleeding with decrease in hemoglobin and chronic anticoagulation. The hospitalist services were contacted and telemedicine physician accepted patient for inpatient admission for further evaluation and treatment. As seen this morning by myself on initial examination. She is alert and oriented and pleasant. She currently is without complaints. She does report that she sees Dr Quentin Starr for cardiology care. She recently had a Holter monitor for 30 days and was found to be intermittently in atrial fibrillation. She reports she was started on a beta ami at that time. Denies nausea or abdominal pain. Has not had any bloody stools since admission. Hemodynamically, patient appears to be stable. Did review orthostatic vital signs from approximately midnight. 123/71 with pulse 102, sitting 122/67 with pulse of 106, standing 104/69, pulse increased to 118. This morning her hemoglobin did drop down to 6.7. We did discuss advanced directives and patient was verified she once to be a full code Past Medical History Past Medical History Titanium medium aortic valve replacement-2011 Atrial fibrillation Hypertension GERD IBS Chronic anticoagulation Surgical History Patient's Surgical History: heart cath 2011 mechanical aortic valve 2011 cholecystectomy Richar fundoplication Laparoscopic vaginal hysterectomy right knee arthroscopic procedure and meniscus repair Right wrist surgery Colonoscopy and EGD-2009 Current Medications Home Meds Reported Medications Lactobacillus Combination No.4 (Probiotic) 1 Each Capsule, 2 CAP PO BID 12/15/16 Metoprolol Tartrate (Metoprolol Tartrate) 25 Mg Tablet, 25 MG PO WB, TAB Take 1 tab, by mouth, one time a day (with breakfast). 12/15/16 Warfarin Sodium (Warfarin Sodium) 5 Mg Tablet, 5 MG PO Fr@HS 10/27/16 Warfarin Sodium (Warfarin Sodium) 2.5 Mg Tablet, 2.5 MG PO [id number]@HS 10/27/16 Metoprolol Tartrate (Metoprolol Tartrate) 50 Mg Tablet, 50 MG PO HS 10/27/16 Dicyclomine HCl (Dicyclomine HCl) 10 Mg Capsule, 10 MG PO BID 10/27/16 Aspirin (Gabriel Chewable) 81 Mg Tab.chew, 81 MG PO DAILY 10/27/16 Amitriptyline HCl (Amitriptyline HCl) 50 Mg Tablet, 50 MG PO HS 10/27/16 Allergies: Coded Allergies: digoxin (Verified Allergy, Intermediate, "got toxic", 12/15/16) adhesive tape (Verified Allergy, Unknown, 12/15/16) diazepam (Verified Allergy, Unknown, 12/15/16) doxycycline (Verified Allergy, Unknown, 12/15/16) Family History Family History: father - CAD paternal grandfather - heart disease does not know anything about her mother Social History Smoking Status: Former smoker Substance Use Type: does not use Alcohol Intake: occasionally Marital Status: Single Sexuality: male partner Housing: house Household Members: family Current Occupational Status: employed Current Occupation: [employer] Advance Directives: Yes Full Code, No DPOA for Healthcare Only Social History Comments Primary care provider, Dr. Evans [employer] Dr. Quentin Starr Review of Systems GI Lower Abdomen: blood in stool Hematologic/Lymphatic see HPI All Other Systems All Other Systems: Reviewed (remainder of 10-point ROS Neg.) Comments All ROS negative Physical Exam General General Nourishment: well nourished, well developed Vital Signs Vital Signs Date Time Temp Pulse Resp B/P Pulse Ox O2 Delivery O2 Flow Rate FiO2 12/16/16 09:18 100 18 100 Room Air 12/16/16 07:21 96.8 112/59 Height (Feet): 5 Height (Inches): 3.00 Telemetry Rhythm: Sinus Rhythm Eyes Brief: FOUND: EOMI, PERRL ENMT Brief: FOUND: mucosa moist, normal dentition, NOT FOUND: pharnyx erythema Respiratory Brief: FOUND: clear all [place], equal bilaterally Cardiovascular (brief) Cardiac Brief: FOUND: pedal edema (trace), regular rate, regular rhythm Abdomen (brief) Abdominal Brief: FOUND: BS normo active x4, soft Comments Bloody stools x 2 day Integumentary (brief) Integumentary Brief: FOUND: dry, pink, warm Neurologic (brief) Neurological Brief: FOUND: cranial 2-12 intact Neurologic RN Documented GCS Eye Opening: Verbal: Motor: Total: Psychiatric (brief) FOUND: alert, attentive, normal affect, oriented Laboratory Laboratory Tests Test 12/15/16 22:10 12/15/16 22:50 12/15/16 23:23 12/16/16 06:34 White Blood Count 10.3T/MM3 7.7T/MM3 Red Blood Count 3.09M/MM3 2.46M/MM3 Hemoglobin 8.6GM/DL 8.1GM/DL 6.7GM/DL Hematocrit 26.8% 21.4% Mean Corpuscular Volume 86.7UM3 87.0UM3 Mean Corpuscular Hemoglobin 27.8UUG 27.2UUG Mean Corpuscular Hemoglobin Concent 32.1GM/DL 31.3GM/DL RDW Standard Deviation 46.7FL 45.7FL Platelet Count 271T/MM3 206T/MM3 Mean Platelet Volume 10.6UM3 10.6UM3 Immature Granulocyte % (Auto) 0.4% 0.4% Neutrophils (%) (Auto) 63.2% 61.2% Lymphocytes (%) (Auto) 30.5% 32.3% Monocytes (%) (Auto) 4.8% 4.9% Eosinophils (%) (Auto) 0.8% 0.9% Basophils (%) (Auto) 0.3% 0.3% Absolute Immature Granulocyte (auto 0.04T/MM3 0.03T/MM3 Absolute Neutrophils (auto) 6.5T/MM3 4.7T/MM3 Absolute Lymphocytes (auto) 3.2T/MM3 2.5T/MM3 Absolute Monocytes (auto) 0.5T/MM3 0.4T/MM3 Absolute Eosinophils (auto) 0.1T/MM3 0.1T/MM3 Absolute Basophils (auto) 0.0T/MM3 0.0T/MM3 Prothromb Time International Ratio 2.86 2.71 Turbidity < 20 < 20 Sodium Level 141MEQ/L 143MEQ/L Potassium Level 4.3MEQ/L 3.9MEQ/L Chloride Level 107MEQ/L 112MEQ/L Carbon Dioxide Level 25MEQ/L 22MEQ/L Anion Gap 9MEQ/L 9MEQ/L Blood Urea Nitrogen 29.0MG/DL 22.0MG/DL Creatinine 1.1MG/DL 0.9MG/DL Glomerular Filtration Rate Calc 52 65 BUN/Creatinine Ratio 26RATIO 24RATIO Glucose Level 125MG/DL 114MG/DL Calculated Osmolality 278MOSM/KG 279MOSM/KG Calcium Level 8.7MG/DL 7.6MG/DL Icterus Index < 2 < 2 Chemistry Specimen Hemolysis < 15 < 15 Urine Collection Type Cleancatch-midstream Urine Color Yellow Urine Turbidity Clear Urine pH 5.0 Urine Specific [place] 1.025 Urine Protein Negative Urine Glucose (UA) Negative Urine Ketones Negative Urine Blood Negative Urine Nitrite Negative Urine Bilirubin Negative Urine Urobilinogen 0.2EU/DL Urine Leukocyte Esterase Negative Urinalysis Comment Microscopic not ind. Assessment & Plan Problems: (1) GI bleed Status: Acute Qualifiers: GI bleed type/associated pathology: unspecified gastrointestinal hemorrhage type Qualified Codes: K92.2 - Gastrointestinal hemorrhage, unspecified (2) Acute blood loss anemia Status: Acute (3) Chronic anticoagulation Status: Chronic (4) Atrial fibrillation Status: Chronic Qualifiers: Atrial fibrillation type: paroxysmal Qualified Codes: I48.0 - Paroxysmal atrial fibrillation (5) HTN (hypertension) Status: Chronic (6) Congenital heart valve abnormality Status: Chronic (7) Aortic valve replaced Status: Chronic Assessment & Plan: Titanium heart valve, 2011 (8) IBS (irritable bowel syndrome) Status: Chronic (9) History of Richar fundoplication Status: Resolved (10) Obesity (BMI 30-39.9) Status: Chronic Plan/Intensity of Service Admit patient to inpatient status under the care of Dr. Hope for acute GI bleed with chronic anticoagulation. Surgical consultation has been obtained by Dr. Goss. Will review his plan of care. Likely scope patient in the next 1-2 days. Continue to monitor serial hemoglobin. Hemoglobin this morning down to 6.7 which is down from 11 on 12/14/16. Type, screen and crossmatch patient for 1 unit of packed red blood cells today. She was given 10 milligrams of vitamin K subcutaneous this morning. His INR this morning was 2.7. Will resume patient's home medications including amitriptyline and Lopressor 25 milligrams in the morning and 50 milligrams at bedtime. Monitor heart rate carefully. Watch for evidence of hypotension, however, patient is at risk to go into atrial fibrillation without her beta ami. Protonix 40 mg IV daily for GI protection Monitor patient on cardiac telemetry SCDs to bilateral lower extremity for DVT prophylaxis Will discuss further treatment and plan of care with Dr. Hope DVT Prophylaxis: SCD'S Code Status Full Code Hospital Course Summary Disclaimer The hospital course summary below is not to be considered part of the above Progress Note. Hospital Course Summary Admit patient to inpatient status under the care of Dr. Hope for acute GI bleed with chronic anticoagulation. Surgical consultation has been obtained by Dr. Goss. Will review his plan of care. Likely scope patient in the next 1-2 days. Continue to monitor serial hemoglobin. Hemoglobin this morning down to 6.7 which is down from 11 on 12/14/16. Type, screen and crossmatch patient for 1 unit of packed red blood cells today. She was given 10 milligrams of vitamin K subcutaneous this morning. His INR this morning was 2.7. Will resume patient's home medications including amitriptyline and Lopressor 25 milligrams in the morning and 50 milligrams at bedtime. Monitor heart rate carefully. Watch for evidence of hypotension, however, patient is at risk to go into atrial fibrillation without her beta ami. Protonix 40 mg IV daily for GI protection Monitor patient on cardiac telemetry SCDs to bilateral lower extremity for DVT prophylaxis Will discuss further treatment and plan of care with MEJIA Collazo MD 12/16/16 1840: Past Medical History Current Medications Home Meds Reported Medications Lactobacillus Combination No.4 (Probiotic) 1 Each Capsule, 2 CAP PO BID 12/15/16 Metoprolol Tartrate (Metoprolol Tartrate) 25 Mg Tablet, 25 MG PO WB, TAB Take 1 tab, by mouth, one time a day (with breakfast). 12/15/16 Warfarin Sodium (Warfarin Sodium) 5 Mg Tablet, 5 MG PO Fr@HS 10/27/16 Warfarin Sodium (Warfarin Sodium) 2.5 Mg Tablet, 2.5 MG PO SuMoTuWeThSa@HS 10/27/16 Metoprolol Tartrate (Metoprolol Tartrate) 50 Mg Tablet, 50 MG PO HS 10/27/16 Dicyclomine HCl (Dicyclomine HCl) 10 Mg Capsule, 10 MG PO BID 10/27/16 Aspirin (Gabriel Chewable) 81 Mg Tab.chew, 81 MG PO DAILY 10/27/16 Amitriptyline HCl (Amitriptyline HCl) 50 Mg Tablet, 50 MG PO HS 10/27/16 Allergies: Coded Allergies: digoxin (Verified Allergy, Intermediate, "got toxic", 12/15/16) adhesive tape (Verified Allergy, Unknown, 12/15/16) diazepam (Verified Allergy, Unknown, 12/15/16) doxycycline (Verified Allergy, Unknown, 12/15/16) Assessment & Plan Problems: (1) GI bleed Status: Acute Qualifiers: GI bleed type/associated pathology: unspecified gastrointestinal hemorrhage type Qualified Codes: K92.2 - Gastrointestinal hemorrhage, unspecified Assessment & Plan: Likely lower GI bleed (2) Acute blood loss anemia Status: Acute (3) Chronic anticoagulation Status: Chronic (4) Atrial fibrillation Status: Chronic Qualifiers: Atrial fibrillation type: paroxysmal Qualified Codes: I48.0 - Paroxysmal atrial fibrillation (5) HTN (hypertension) Status: Chronic (6) Congenital heart valve abnormality Status: Chronic Assessment & Plan: Aortic stenosis (7) Aortic valve replaced Status: Chronic Assessment & Plan: [place]/Titanium heart valve, 2012 (8) IBS (irritable bowel syndrome) Status: Chronic (9) History of Richar fundoplication Status: Resolved (10) Obesity (BMI 30-39.9) Status: Chronic Assessment I have independently evaluated and examined this patient. I reviewed the chart, the patient's history, and the [employer]'s documented findings as above. We discussed and formulated the assessment and plan as above with additions as below: Mrs. Zepeda is a patient of Dr. Evans who presented with rectal bleeding starting 2 days ago without abdominal pain, indigestion, heartburn, nausea, or vomiting. She has no history of peptic disease and has not had diarrhea associated with the rectal bleeding. She denies tenesmus and has passed some clots of blood but denies melena. She's had minor lightheadedness. She describes multiple bloody stools yesterday but has had no further bloody bowel movements since admission. She had a [facility] [place]'s valve replacement for aortic stenosis 5 years ago and is under the care of Dr. Starr with event monitor demonstrating paroxysmal atrial fibrillation within the past month. Examination reveals an alert, comfortable patient who provides detailed historical information. Patient was mildly orthostatic earlier today. Breath sounds are clear and respirations nonlabored. Cardiac rhythm is regular with S2 click present. Bowel sounds are decreased, the abdomen is obese but soft and there is no tenderness on palpation throughout the abdomen. Hemoglobin has dropped from 11.0 2 days ago to 6.7 this morning prompting transfusion of one unit of packed red blood cells with posttransfusion hemoglobin of 8.0. Hemoglobin will be repeated early this evening to determine if stable. Given absence of further stools no further blood may be needed. INR is beginning to drop following administration of vitamin K orally today with INR dropping from 2.86 on presentation last night to 2.39 midafternoon today. INR will be rechecked with hemoglobin at 8 PM, if it hasn't dropped below 2 additional vitamin K will be given. Plans were discussed with Dr. Goss and the patient will be permitted clear liquids until bowel prep this is initiated tomorrow. Colonoscopy is anticipated either late tomorrow or the following day. Need to hold anticoagulation short- term was discussed with the patient and I explained that given high flow nature of aortic valves this can be done safely for short periods of time. Note-Dr. Parekh will be the admitting physician in place of Dr. Hope Plan/Intensity of Service Outpatient records reviewed, discussed with Dr. Goss. Laboratory data reviewed. High-risk medications in use. FILEMON GARCIA APRN Dec 16, 2016 10:27 MEJIA PAREKH MD Dec 16, 2016 18:40
--- NOTE | 2016-12-16 11:18 | CONSF ---
DATE OF CONSULTATION 12/16/2016 FINDINGS Mrs. Zepeda is a 56-year-old female whom I was asked to see today as a result of her history for rectal bleeding. The patient states that about two days ago she began to experience a component of some rectal bleeding. She states over the last two days she has had multiple large bloody stools. She describes the blood as being both bright red and somewhat darker in nature. The patient denies any element of abdominal pain. She denies any prior history for peptic ulcer disease. The patient states that her last endoscopic evaluation was about seven years ago and she underwent both an EGD and colonoscopy at that time. She states that no abnormalities were noted. This apparently was performed in [place]. This morning the patient did not appear to be in acute distress. She denied, again, any element of abdominal pain. She states she has had few additional stools since admission. PAST MEDICAL HISTORY Performed by my nurse practitioner, Carlito Curiel. PAST SURGICAL HISTORY Performed by my nurse practitioner, Carlito Curiel. MEDICATIONS Performed by my nurse practitionerCarlito. ALLERGIES Performed by my nurse practitioner, Carlito Curiel. SOCIAL HISTORY Performed by my nurse practitioner, Carlito Curiel. FAMILY HISTORY Performed by my nurse practitioner, Carlito Curiel. REVIEW OF SYSTEMS Performed by my nurse practitionerCarlito. PHYSICAL EXAMINATION Mrs. Zepeda is a 56-year-old female who, as above, did not appear to be in any acute distress this morning. VITALS: Temperature 96.8. Pulse 100. Respirations 18. Blood pressure 112/59. SaO2 100% on room air. HEENT: Normocephalic. Pupils are equal, round, reactive to light and accommodation. NECK: Supple without lymphadenopathy. CHEST: Clear to auscultation bilaterally. HEART: Regular rate and rhythm. Normal S1 and S2 without gallops, murmurs or clicks. ABDOMEN: Visualization of the abdomen revealed it to be slightly protuberant in nature. Palpation of the abdomen revealed it to be soft and completely nontender. There was no evidence for hepatomegaly or other abnormal masses.. EXTREMITIES: Without clubbing, cyanosis, or edema. NEURO: Cranial nerves II-XII grossly intact. Patient is without focal motor or sensory deficits. LABORATORY/RADIOGRAPH EVALUATION The patient's hemoglobin upon admission was 8.6. This has now drifted down this morning to 6.7. BMP was obtained and her chloride was slightly elevated at 112. BUN was slightly elevated at 22.0. Yesterday, her BUN was 29.0. INR was obtained this morning and found to be elevated at 2.7. The patient is status post mechanical aortic valve replacement secondary aortic stenosis. ASSESSMENT 56-year-old female with a several-day history of GI bleed of uncertain etiology. PLAN I agree with the current management of this patient. She is being treated empirically for peptic ulcer disease and is on Protonix 40 mg IV daily. I would go ahead and give the patient some vitamin K this morning to reverse her INR given her ongoing rectal bleeding. Given her significant anemia, I would go ahead and type and cross and transfuse the patient one unit of blood. Would recommend that we would follow the patient from a clinical standpoint today and if her bleeding begins to subside we would then proceed with a bowel prep tomorrow and probable bidirectional endoscopy on Wednesday. The above plan was discussed with the patient. RONY
[2016-12-16 15:14] LABS: INR 2.39 (0.76-1.04); PROTHROMBIN TIME 26.1 SEC (9.31-12.49)
[2016-12-16] MEDS ORDERED: BISACODYL 5 MG E.C. TABLET PO ONE (16:45)
--- NOTE | 2016-12-16 17:50 | PNSURG ---
Subjective DATE: 12/16/16 TIME: 17:43 Interval History No bloody stool documented since this morning. Vit K SQ given this am, INR this afternoon 2.39. HGB up to 8.0 after 1 unit PRBC. Objective Vital Signs Date Time Temp Pulse Resp B/P Pulse Ox O2 Delivery O2 Flow Rate FiO2 12/16/16 14:47 97.6 76 18 111/63 100 Room Air Height (Feet): 5 Height (Inches): 3.00 Weight (Kilograms): 97.500 BMI 38.2 General Appearance: Alert, Orientated x 3 Laboratory Trend Hemoglobin Test 12/15/16 22:10 12/15/16 23:23 12/16/16 06:34 12/16/16 14:41 Hemoglobin 8.6GM/DL (12-16) 8.1GM/DL (12-16) 6.7GM/DL (12-16) 8.0GM/DL (12-16) Trend INR Test 12/15/16 22:10 12/16/16 06:34 12/16/16 14:41 Prothromb Time International Ratio 2.86 (0.76-1.04) 2.71 (0.76-1.04) 2.39 (0.76-1.04) Laboratory Tests 12/15/16 22:10 12/16/16 06:34 Laboratory Tests 12/15/16 22:10 12/15/16 23:23 12/16/16 06:34 12/16/16 14:41 Assessment & Plan Problems: (1) GI bleed Status: Acute Qualifiers: GI bleed type/associated pathology: unspecified gastrointestinal hemorrhage type Qualified Codes: K92.2 - Gastrointestinal hemorrhage, unspecified (2) Acute blood loss anemia Status: Acute (3) Aortic valve replaced Status: Chronic Assessment 01-15-17 Surgical: Vit K 10 mg SQ given this am, INR this afternoon 2.39. HGB up to 8.0 after 1 unit PRBC. Repeat Vit K this evening. Repeat INR and HGB in am. Bowel prep this evening and colonoscopy tomorrow 01-16-17 DVT Prophylaxis: SCD'S Code Status Full Code Hospital Course Summary Disclaimer The visit summary below is not to be considered part of the above Progress Note. Hospital Course Summary Admit patient to inpatient status under the care of Dr. Hope for acute GI bleed with chronic anticoagulation. Surgical consultation has been obtained by Dr. Goss. Will review his plan of care. Likely scope patient in the next 1-2 days. Continue to monitor serial hemoglobin. Hemoglobin this morning down to 6.7 which is down from 11 on 12/14/16. Type, screen and crossmatch patient for 1 unit of packed red blood cells today. She was given 10 milligrams of vitamin K subcutaneous this morning. Her INR this morning was 2.7. Will resume patient's home medications including amitriptyline and Lopressor 25 milligrams in the morning and 50 milligrams at bedtime. Monitor heart rate carefully. Watch for evidence of hypotension, however, patient is at risk to go into atrial fibrillation without her beta ami. Protonix 40 mg IV daily for GI protection Monitor patient on cardiac telemetry SCDs to bilateral lower extremity for DVT prophylaxis Will discuss further treatment and plan of care with Dr. Hope 01-15-17 Surgical: Vit K 10 mg SQ given this am, INR this afternoon 2.39. HGB up to 8.0 after 1 unit PRBC. Repeat Vit K this evening. Repeat INR and HGB in am. Bowel prep this evening and colonoscopy tomorrow 01-16-17 MEGHAN HOGAN APRN, CWS Dec 16, 2016 17:47
--- NOTE | 2016-12-16 17:53 | NUR ---
Shift Summary Daughter with patient overnight and through morning. Vital signs stable. Midline placed. Telemetry running sinus tachycardia. Denies pain/tenderness in abdomen. Patient received one unit of blood during shift. Patient to have colonoscopy 12/17/16, and bowel prep started at 1800. Up ad lance.
[2016-12-16] MEDS ORDERED: POLYETHYL.GLYCOL 3350 BOTTLE 238 GM PO ONE (18:00)
[2016-12-16 20:30] LABS: HGB - HEMOGLOBIN 8.6 GM/DL (12-16)
[2016-12-16 20:45] LABS: INR 2.17 (0.76-1.04); PROTHROMBIN TIME 23.6 SEC (9.31-12.49)
[2016-12-16] MEDS: AMITRIPTYLINE 50 MG TABLET PO SCH (21:16)
[2016-12-16] MEDS: DICYCLOMINE 10 MG CAPSULE PO SCH (21:16)
[2016-12-17] VITALS (29 sets, daily range): BP systolic 93–137; BP diastolic 50–79; PULSE 74–97; RESP 12–24; TEMP 97–98.5; O2SAT 91–100
[2016-12-17 02:14] LABS: HGB - HEMOGLOBIN 7.8 GM/DL (12-16)
--- NOTE | 2016-12-17 02:40 | NUR ---
STATUS PT COMPLETED BOWEL PREP AT 0030. PT NPO AFTER THIS, PT VERBALIZED UNDERSTANDING. Hgb AT [address] LAZO UPDATED, NO NEW ORDERS AT THIS TIME. WILL UPDATE DR LAZO AFTER 0400 LAB. PT CONTINUES TO HAVE LIQUID STOOL. BLOODY, DARK BLACK COLOR. VERY SMALL PIECES OF UNDIGESTED FOOD NOTED. PT USING BSC, IT HAS BECOME MORE DIFFICULT FOR HER TO MAKE IT TO THE BATHROOM. SLEEPING OFF AND ON BETWEEN USING THE BSC. DAUGHTER SLEEPING AT BED SIDE IN [place].
[2016-12-17 04:43] LABS: HGB - HEMOGLOBIN 7.7 GM/DL (12-16)
--- NOTE | 2016-12-17 05:45 | NUR ---
STATUS Hgb AT 0400 WAS 7.7, WILL UPDATE DR LAZO. PT SLEEPING MORE NOW.
[2016-12-17] MEDS ORDERED: PHYTONADIONE IV ONE (08:00)
[2016-12-17] MEDS ORDERED: NORMAL SALINE IV ONE (08:00)
--- NOTE | 2016-12-17 08:03 | NUR ---
AM MEDS PA HOGAN OKAY WITH PATIENT TAKING AM MEDS WITH SIP OF WATER.
[2016-12-17] MEDS: DICYCLOMINE 10 MG CAPSULE PO SCH ×2 (08:07→20:26)
[2016-12-17] MEDS: PANTOPRAZOLE 40mg INJECTION IV SCH (08:10)
[2016-12-17 08:11] LABS: BASOPHILS % (AUTO) 0.5 % (0-2); EOSINOPHILS # (AUTO) 0.1 T/MM3 (0-0.5); EOSINOPHILS % (AUTO) 1.5 % (0-4); HGB - HEMOGLOBIN 7.8 GM/DL (12-16); IMMATURE GRANULOCYTE # (AUTO) 0.01 T/MM3 (0.00-0.03); IMMATURE GRANULOCYTE % (AUTO) 0.2 % (0.0-0.5); LYMPHOCYTES # (AUTO) 1.8 T/MM3 (1-4.8); LYMPHOCYTES % (AUTO) 27.5 % (23-45); MEAN CORPUSCULAR HGB CONC(MCHC 32.5 GM/DL (31-37); MEAN CORPUSCULAR VOLUME 89.2 UM3 (80-100); MEAN PLATELET VOLUME 10.4 UM3 (9.4-12.4); MONOCYTES # (AUTO) 0.3 T/MM3 (0-0.8); MONOCYTES % (AUTO) 4.5 % (0-9.0); NEUTROPHILS #(AUTO)-ABSOLUTE 4.4 T/MM3 (1.8-7.7); NEUTROPHILS % (AUTO) 65.8 % (33-66); RED BLOOD COUNT 2.69 M/MM3 (4.00-5.20); WBC - WHITE BLOOD COUNT 6.6 T/MM3 (4.5-11.0)
[2016-12-17 08:15] LABS: INR 1.66 (0.76-1.04); PROTHROMBIN TIME 18.1 SEC (9.31-12.49)
[2016-12-17] MEDS ORDERED: FLEET PHOSPHO-SODA 133 ML ENEMA RECTALLY ONE ×3 (08:15→11:30)
[2016-12-17 08:21] LABS: ALBUMIN 2.7 G/DL (3.5-5.0); ALBUMIN/GLOBULIN RATIO 1.1 RATIO (1.1-2.2); ALKALINE PHOSPHATASE 40 U/L (38-126); ALT (SGPT) 33 U/L (9-52); ANION GAP 10 MEQ/L (5-15); AST (SGOT) 24 U/L (14-36); BUN/CREATININE RATIO 11 RATIO (6-26); CALCIUM 7.5 MG/DL (8.4-10.2); CHLORIDE 114 MEQ/L (98-107); CO2 - CARBON DIOXIDE 21 MEQ/L (22-30); CREATININE 0.9 MG/DL (0.7-1.2); GLOMERULAR FILTRATION RATE 65; GLUCOSE 107 MG/DL (65-110); POTASSIUM 3.9 MEQ/L (3.6-5); SODIUM 145 MEQ/L (134-144); TOTAL PROTEIN 5.2 G/DL (6.3-8.2)
[2016-12-17] MEDS ORDERED: ONDANSETRON 4mg/2ml INJECTION IV PRN (09:45)
[2016-12-17] MEDS ORDERED: CALMOSEPTINE OINTMENT 3.5 G PACKET TOP PRN (11:00)
--- NOTE | 2016-12-17 11:44 | NUR ---
Bowel prep Three enemas given. Stools becoming more clear. Previous stools brownish in tint, not clear and containing some mucous. Patient received third enema approx. 11:40.
--- NOTE | 2016-12-17 12:06 | PNPDOC ---
Subjective Date DATE: 12/17/16 TIME: 11:57 Subjective Mrs. Zepeda reports no further rectal bleeding. Bowel prep was started last night for colonoscopy and she is currently having watery stools with minimal residual flecks of stool. Colonoscopy is planned this afternoon with one additional enema to be given late morning. She complains of some perirectal discomfort due to multiple stools overnight. She denied lightheadedness or dizziness. She's been nauseated this morning but has had no vomiting. She denied dyspnea, cough, chest pain, palpitations, or dysuria. Urine volume remains adequate. Objective Vital Signs Vital signs Vital Signs Date Time Temp Pulse Resp B/P Pulse Ox O2 Delivery O2 Flow Rate FiO2 12/17/16 09:37 86 125/79 12/17/16 08:30 18 12/17/16 07:43 97.4 95 Room Air I/O 2940/3425 EXAM General-NAD, alert, fluent speech HEENT-conjunctiva clear, sclera anicteric, EOMI Lungs-respirations nonlabored, good airflow, breath sounds clear Cardiac-regular rhythm, S1-S2 with S2 click Abd-obese, soft, nontender, L sounds present although diminished Ext-without edema Neuro-moving all extremities well Telemetry Rhythm: Sinus Rhythm Height (Feet): 5 Height (Inches): 3.00 Weight (Kilograms): 99.000 Laboratory Laboratory Laboratory Tests 12/15/16 22:10 12/16/16 06:34 12/17/16 07:55 Laboratory Tests 12/15/16 22:10 12/15/16 23:23 12/16/16 06:34 12/16/16 14:41 12/16/16 20:11 12/17/16 01:59 12/17/16 03:58 12/17/16 07:55 INR 1.66 Liver function tests normal Assessment & Plan Problems: (1) GI bleed Status: Acute Qualifiers: GI bleed type/associated pathology: unspecified gastrointestinal hemorrhage type Qualified Codes: K92.2 - Gastrointestinal hemorrhage, unspecified Assessment & Plan: Likely lower GI bleed (2) Acute blood loss anemia Status: Acute Assessment & Plan: 1 unit packed red blood cells transfused 12/16/16 (3) Chronic anticoagulation Status: Chronic (4) Atrial fibrillation Status: Chronic Qualifiers: Atrial fibrillation type: paroxysmal Qualified Codes: I48.0 - Paroxysmal atrial fibrillation (5) HTN (hypertension) Status: Chronic (6) Congenital heart valve abnormality Status: Chronic Assessment & Plan: Aortic stenosis (7) Aortic valve replaced Status: Chronic Assessment & Plan: [place]/Titanium heart valve, 2012 (8) IBS (irritable bowel syndrome) Status: Chronic (9) History of Richar fundoplication Status: Resolved (10) Obesity (BMI 30-39.9) Status: Chronic Assessment Clinically stable, for colonoscopy later today. INR in hemoglobin to be rechecked in about 30 minutes. No orthostatic hypotension and blood pressure stable. Will require resumption of anticoagulation in the near future due to mechanical valve. Sodium borderline high, IV fluids discontinued. Anticipate resuming oral intake post procedure. Plan/Intensity of Service Laboratory data reviewed, discussed with daughter at bedside and nursing. Code Status Full Code Hospital Course Summary Disclaimer The hospital course summary below is not to be considered part of the above Progress Note. Hospital Course Summary Admit patient to inpatient status under the care of Dr. Hope for acute GI bleed with chronic anticoagulation. Surgical consultation has been obtained by Dr. Goss. Will review his plan of care. Likely scope patient in the next 1-2 days. Continue to monitor serial hemoglobin. Hemoglobin this morning down to 6.7 which is down from 11 on 12/14/16. Type, screen and crossmatch patient for 1 unit of packed red blood cells today. She was given 10 milligrams of vitamin K subcutaneous this morning. Her INR this morning was 2.7. Will resume patient's home medications including amitriptyline and Lopressor 25 milligrams in the morning and 50 milligrams at bedtime. Monitor heart rate carefully. Watch for evidence of hypotension, however, patient is at risk to go into atrial fibrillation without her beta ami. Protonix 40 mg IV daily for GI protection Monitor patient on cardiac telemetry SCDs to bilateral lower extremity for DVT prophylaxis Will discuss further treatment and plan of care with Dr. Hope 12-16-16 Surgical: Vit K 10 mg SQ given this am, INR this afternoon 2.39. HGB up to 8.0 after 1 unit PRBC. Repeat Vit K this evening. Repeat INR and HGB in am. Bowel prep this evening and colonoscopy tomorrow 01-16-17 12/17/16-[place] Clinically stable, for colonoscopy later today. INR in hemoglobin to be rechecked in about 30 minutes. No orthostatic hypotension and blood pressure stable. Will require resumption of anticoagulation in the near future due to mechanical valve. Sodium borderline high, IV fluids discontinued. Anticipate resuming oral intake post procedure. MEJIA CHUN MD Dec 17, 2016 12:00
[2016-12-17] MEDS: NORMAL SALINE 1,000 ML IV SCH (12:23)
--- NOTE | 2016-12-17 12:49 | ANESPREOP ---
Anesthesia Record Date and Time DATE: 12/17/16 TIME: 12:42 Pre-Op Diagnosis rectal bleeding Proposed Surgical Procedure colonoscopy NPO since: mn Allergies: Coded Allergies: digoxin (Verified Allergy, Intermediate, "got toxic", 12/15/16) adhesive tape (Verified Allergy, Unknown, 12/15/16) diazepam (Verified Allergy, Unknown, 12/15/16) doxycycline (Verified Allergy, Unknown, 12/15/16) Ht/Wt/BMI Height: 5 ' 3.00 " Weight: 99.000 kg BMI: 38.2 kg/m2 Vital Signs Date Time Temp Pulse Resp B/P Pulse Ox O2 Delivery O2 Flow Rate FiO2 12/17/16 12:19 97.8 78 16 137/72 98 Room Air Medications Inpatient Medications Current Medications Medications (Trade) Dose Ordered Sig/Hayden Start Time Stop Time Status Last Admin Dose Admin Sodium Chloride (Normal Saline IV) 1,000 ml @ 125 mls/hr Q8H 12/15/16 23:15 12/17/16 05:00 DC 12/17/16 12:23 125 MLS/HR Pantoprazole Sodium 40 mg 40 mg DAILY 12/16/16 09:00 12/17/16 08:10 40 MG Sodium Chloride (NS) 500 ml @ 0 mls/hr Q0M 12/15/16 23:01 Amitriptyline HCl (Elavil) 50 mg HS 12/16/16 22:00 12/16/16 21:16 50 MG Metoprolol Tartrate (Lopressor) 25 mg WB 12/16/16 10:45 12/17/16 08:07 25 MG Metoprolol Tartrate (Lopressor) 50 mg HS 12/16/16 22:00 12/16/16 21:16 50 MG Dicyclomine HCl (Bentyl) 10 mg BID 12/16/16 21:00 12/17/16 08:07 10 MG Ondansetron HCl (Zofran) 4 mg Q6H PRN 12/17/16 09:45 Calamine/Phenol (Calmoseptine) 1 applic PRN PRN 12/17/16 11:00 12/17/16 12:03 1 APPLIC Amitriptyline HCl (Amitriptyline HCl) 50 Mg Tablet, 50 MG PO HS, (Reported) Last Taken: on 12/14/16 2200 Aspirin (Gabriel Chewable) 81 Mg Tab.chew, 81 MG PO DAILY, (Reported) Last Taken: on 12/15/16699 Dicyclomine HCl (Dicyclomine HCl) 10 Mg Capsule , 10 MG PO BID, (Reported) Last Taken: on 12/15/16699 Lactobacillus Combination No.4 (Probiotic) 1 Each Capsule, 2 CAP PO BID, (Reported) Last Taken: on 12/15/16699 Metoprolol Tartrate (Metoprolol Tartrate) 50 Mg Tablet, 50 MG PO HS, (Reported) Last Taken: on 12/14/162199 Metoprolol Tartrate (Metoprolol Tartrate) 25 Mg Tablet, 25 MG PO WB, (Reported) Take 1 tab, by mouth, one time a day (with breakfast). Last Taken: on 12/15/16699 Warfarin Sodium (Warfarin Sodium) 2.5 Mg Tablet , 2.5 MG PO SuMoTuWeThSa@HS, (Reported) Last Taken: on 12/14/162199 Warfarin Sodium (Warfarin Sodium) 5 Mg Tablet, 5 MG PO Fr@HS, (Reported) Last Taken: on 12/11/162199 Currently on Beta Nemo: Yes Beta Nemo Last Taken: 12-17-16 @ 0800 Medical/Surgical History Anesthesia PMH: Reports: *Hypertension, Cardiac Arrythmia (A-FIB, Dr. Ley aware and keeping an eye on it, ), Hiatal Hernia, Sleep Apnea (not since wieght loss), Denies: *Angina, *Diabetes, *[place], Asthma, CHF, COPD, CVA/Stroke/TIA, Cancer, Deep Vein Thrombosis, Glaucoma, Pacemaker, Reflux, Renal Disease, Seizures Smoking Status: Former smoker Substance Use Type: does not use HX of Last Menstrual Period: HYST Past Surgical History Orthopedic Surgeries: Yes - R WRIST, R KNEE Abdominal Surgeries: Yes - SÁNCHEZ, HIATAL HERNIA Genitourinary Surgeries: No Cardiac Surgeries: Yes - TITANIUM VALVE X 1 Endocrine Surgeries: No Reproductive Surgeries: Yes - HYST Neurological Surgeries: No Ear Surgeries: No Nose Surgeries: No Throat Surgeries: No Other Surgeries: Yes - JUNIE FUNDAPLICATION Anesthesia Adverse Reactions: FOUND none Family Hx of Anesthesia Advers: none Hx of Motion Sickness: No Pertinent Findings Laboratory Tests 12/17/16 07:55 Test 12/17/16 07:55 Prothromb Time International Ratio 1.66 (0.76-1.04) EKG Rhythm: Sinus Rhythm Physical Exam Respiratory: Bilat breath sounds equal, Lungs clear Cardiovascular: FOUND Regular rate, rhythm, FOUND No murmur Airway Assessment Mallampati Score: II TMD: 3 Fingerbreadths Neck Extension: Good Overall Assessment: May Be Diff Intubation ASA: 3 Plan Anesthesia Plan: TIVA Discussion Discussed risks/options/alternatives of anesthesia and questions answered. Patient consents. Nursing pain assessment noted. Attestation Statement Prior to the delivery of any anesthetic medication, I examined the patient, developed the plan, obtained the patient's consent and discussed the risk and benefits of the procedure with the patient/guardian. ANA TOBAR CRNA Dec 17, 2016 12:47
[2016-12-17] MEDS ORDERED: LIDOCAINE 2% (20mg/ml) 5ml PF SDV ONE (12:55)
[2016-12-17] MEDS ORDERED: PROPOFOL 500mg 50 ML IV ONE (12:55)
[2016-12-17] MEDS ORDERED: LIDOCAINE VISCOUS 2% Oral Soln 15ml UD ONE (12:56)
[2016-12-17] MEDS ORDERED: FENTANYL 100mcg/2ml INJECTION ONE (12:57)
--- NOTE | 2016-12-17 13:34 | GSPOSTPN ---
Endoscopy Procedure Procedure Date: Dec 17, 2016 Surgeon: Ana Paula Anesthesia: TIVA ASA: 3 Procedure: Colonoscopy-forceps polypectomy, EGD Diagnosis Preop Diagnosis rectal bleeding, blood loss anemia Postop Colonoscopy Diagnosis Postop Colonoscopy Diagnosis: Diverticulosis Polyps at (cm): 60 cm Postop EGD Diagnosis Postop EGD Diagnosis: FOUND Same as preop diagnosis (normal EGD) Complications Complications Estimated Blood Loss See Anesthesia Record. Vital Signs See Anesthesia and PACU record. MEGHAN HOGAN APRN, CWS Dec 17, 2016 13:34
--- NOTE | 2016-12-17 18:09 | NUR ---
Status note VSS. RA. Colonoscopy and endoscopy performed 12/17. Post-op vital signs stable and ongoing. Patient to possibly discharge tomorrow, 12/18. IV fluids discontinued. Diet as tolerated. Patient denies pain. No nausea since procedure. Up ad lance. Good appetite.
[2016-12-17 18:17] LABS: HCT - HEMATOCRIT 23.2 % (36-46); HGB - HEMOGLOBIN 7.3 GM/DL (12-16)
--- NOTE | 2016-12-17 19:33 | NUR ---
STUDENT CHARTING REVIEWED [facility] STUDENT'S CHARTING REVIEWED BY THIS RN.
[2016-12-17] MEDS ORDERED: ENOXAPARIN 40 MG/0.4 ML INJECTION SQ ONE (20:00)
[2016-12-17] MEDS: AMITRIPTYLINE 50 MG TABLET PO SCH (20:26)
--- NOTE | 2016-12-18 01:47 | NUR ---
Chart Check 24 hour chart check completed
[2016-12-18 04:02] VITALS: BP 103/60; PULSE 89; RESP 18; TEMP 98.6; O2SAT 95
[2016-12-18 04:15] LABS: BASOPHILS % (AUTO) 0.3 % (0-2); EOSINOPHILS # (AUTO) 0.1 T/MM3 (0-0.5); EOSINOPHILS % (AUTO) 1.7 % (0-4); HCT - HEMATOCRIT 23.2 % (36-46); HGB - HEMOGLOBIN 7.3 GM/DL (12-16); IMMATURE GRANULOCYTE # (AUTO) 0.02 T/MM3 (0.00-0.03); IMMATURE GRANULOCYTE % (AUTO) 0.3 % (0.0-0.5); LYMPHOCYTES # (AUTO) 2.2 T/MM3 (1-4.8); LYMPHOCYTES % (AUTO) 31.8 % (23-45); MEAN CORPUSCULAR HGB 28.6 UUG (26-34); MEAN CORPUSCULAR HGB CONC(MCHC 31.5 GM/DL (31-37); MEAN PLATELET VOLUME 10.7 UM3 (9.4-12.4); MONOCYTES # (AUTO) 0.4 T/MM3 (0-0.8); MONOCYTES % (AUTO) 5.8 % (0-9.0); NEUTROPHILS #(AUTO)-ABSOLUTE 4.1 T/MM3 (1.8-7.7); NEUTROPHILS % (AUTO) 60.1 % (33-66); RED BLOOD COUNT 2.55 M/MM3 (4.00-5.20); WBC - WHITE BLOOD COUNT 6.9 T/MM3 (4.5-11.0)
[2016-12-18 04:17] LABS: INR 1.2 (0.76-1.04); PROTHROMBIN TIME 13.1 SEC (9.31-12.49)
[2016-12-18 04:21] LABS: ANION GAP 6 MEQ/L (5-15); BUN/CREATININE RATIO 7 RATIO (6-26); CALCIUM 7.6 MG/DL (8.4-10.2); CHLORIDE 112 MEQ/L (98-107); CO2 - CARBON DIOXIDE 25 MEQ/L (22-30); CREATININE 1.1 MG/DL (0.7-1.2); GLOMERULAR FILTRATION RATE 52; GLUCOSE 115 MG/DL (65-110); SODIUM 143 MEQ/L (134-144)
--- NOTE | 2016-12-18 06:22 | NUR ---
SUMMARY PT SLEPT THROUGH MOST OF NIGHT. ELAVIL HELPING HER REST. DENIED PAIN OR NAUSEA. NO STOOLS. URINE OUTPUT ADEQUATE. HGB REMAINS UNCHANGED FROM LAST LAB DRAW. PT WORRIED ABOUT HER INR ONLY BEING 1.2 (WORRIED DUE TO PREVIOUS VALVE REPLACEMENT). UP AD PINA. DENIED DIZZINESS.
[2016-12-18 07:54] VITALS: BP 119/69; PULSE 96; PULSE 97; RESP 18; TEMP 99.4; O2SAT 93
[2016-12-18 07:55] VITALS: BP 141/75; PULSE 101
--- NOTE | 2016-12-18 07:56 | OPNOTEF ---
DATE OF PROCEDURE 12/17/2016 SURGEON Lino Goss MD PREOPERATIVE DIAGNOSIS Rectal bleeding, anemia. POSTOPERATIVE DIAGNOSIS Rectal bleeding, anemia, normal EGD, sigmoid diverticulosis, colonic polyp x 1 at 60 cm from anal verge. PROCEDURE Esophagogastroduodenoscopy, colonoscopy with polypectomy via cold biopsy technique. ANESTHESIA TIVA BRIEF HISTORY/INDICATIONS Mrs. Zepeda is a 56-year-old female who presented to our facility as a result of her history for rectal bleeding and finding of anemia upon laboratory evaluation. The patient was fully anticoagulated as a result of her history for mechanical aortic valve replacement. Her anticoagulation has been reversed. She has been treated empirically for peptic ulcer disease. Patient presents today to undergo bidirectional endoscopy for further evaluation. For completeness please refer to notes included in the patient's chart. FINDINGS Upon upper endoscopy esophagus, stomach and duodenum were within normal limits. There was no evidence for old blood upon the surface of mucosa involving esophagus, stomach or duodenum. Upon colonoscopy the patient was found have a few scattered diverticula within the sigmoid colon region. There was some mild erythema around a few of these diverticula. No active bleeding, however, was noted from the diverticula. The patient was found have a single polyp at 60 cm from the anal verge that was fairly diminutive in nature, on the order of about 5 mm in diameter. This polyp was removed in its entirety. There was no evidence for angiodysplastic lesions or jonathan malignancies. DESCRIPTION OF PROCEDURE After informed consent was obtained, the patient was brought to the endoscopy suite and placed on the table in left lateral decubitus position. The patient subsequently underwent total intravenous anesthesia by the nurse flake miller wheat and oats per my request. Formal time-out was then completed. Next, digital rectal examination was performed. Normal sphincter tone. No rectal masses were appreciated. An Olympus colonoscope was inserted in the anus and advanced with the lumen of the colon under direct visualization at all times. The rectum, sigmoid colon and descending colon were fairly void of blood or particulate matter. The patient, however, had undergone a couple of enemas earlier today. As the scope was being advanced, one could see a few diverticula involving the distal sigmoid colon at around 20-30 cm from the anal verge. There was a slight component of some erythema surrounding a few of these diverticula. No evidence of active bleeding, however, was noted. Colonoscope was then continued to be advanced until the ascending colon was identified. There was a moderate amount of residual liquidy stool within the ascending colon that did have some old blood within it. Colonoscope was then continued to be advanced till the cecum was ascertained. Triangulation of the tenia coli and ileocecal valve were identified. This area was irrigated and the material still present within the colonic lumen was suctioned. The scope was then slowly withdrawn. As stated above, there was no evidence for angiodysplastic lesions or jonathan malignancies. As the scope was slowly withdrawn, a polyp was identified at 60 cm from the anal verge. As stated above, this polyp was fairly diminutive in nature on the order of about 5 mm in diameter. The polyp was grasped and removed in its entirety via cold biopsy technique. Colonoscope was then continued to be slowly withdrawn until it was brought forth back to rectal vault. A J-maneuver was then performed. No worrisome perianal pathology was noted. Scope was allowed to straighten and withdrawn through the anal verge. Secondary to the inability to identify with certainty a cause for her bleeding, I elected to proceed with upper endoscopy. An Olympus gastroscope was inserted in the oral hypopharynx and subsequently the esophagus under direct visualization. Gastroscope was advanced through the esophagus, stomach, pylorus, duodenal bulb, into second portion of the duodenum. Scope was then slowly withdrawn. First and second portions of the duodenum were within normal limits. No evidence for duodenitis or ulcerations were noted. Scope was withdrawn back to prepyloric region and antrum. Again, no mucosal abnormalities were noted. J-maneuver was performed. Cardia and fundus were within normal limits. Scope was allowed to straighten and slowly withdrawn. Remaining corpus of the stomach was well visualized, again without noted abnormalities. Scope was withdrawn back to the level of the diaphragm. Squamocolumnar junction was located at the level of the diaphragm and was well demarcated with no endoscopic evidence for Artis's metaplasia. The gastroscope was then continued to be slowly withdrawn and the remaining esophageal mucosa was carefully inspected and found to be without mucosal abnormalities. Gastroscope was then removed from the patient's esophagus. The patient tolerated the procedure without difficulty and was sent back to recovery room in stable condition. It is my clinical intuition the patient likely did suffer a diverticular bleed as the underlying etiology for her bleeding. I do believe that we could resume her anticoagulation and slowly advance her diet as tolerated. MTDD
[2016-12-18 07:57] VITALS: BP 123/81; PULSE 102
[2016-12-18] MEDS: DICYCLOMINE 10 MG CAPSULE PO SCH (09:45)
[2016-12-18] MEDS: PANTOPRAZOLE 40mg INJECTION IV SCH (09:46)
[2016-12-18] MEDS ORDERED: FERR-49 PO (11:18)
[2016-12-18] MEDS ORDERED: POLY17PO6 PO (11:18)
--- NOTE | 2016-12-18 11:31 | NUR ---
EDIN CM VISITED PT. PT IS PLANNING TO RETURN HOME TODAY. PT DENIES NEEDS. PT IS AWARE TO CONTACT CM IF NEEDS ARISE.
--- NOTE | 2016-12-18 12:05 | NUR ---
no co of abd pain,no bloody stools noted midline and perip ivs pulled dc instrucitons reviewed dc per wc with family
--- NOTE | 2016-12-18 15:27 | DSPDOC ---
General Date Date DATE: 12/18/16 TIME: 15:10 Attending Physician Azeb Parekh MD Admitting Physician Azeb Parekh MD Consulting Physician Claudia Bernard MD,Facs,Cws Admitting Diagnosis GI bleed, anticoagulated, anemia Discharge Diagnosis 1. Hematochezia due to diverticular bleed 2. Acute blood loss anemia 3. Diverticulosis 4. Mechanical aortic valve 5. Paroxysmal atrial fibrillation 6. Hypertension 7. Irritable bowel syndrome Procedures EGD/colonoscopy on 12/17/16 revealing no abnormalities on upper endoscopy. There were scattered diverticuli in the sigmoid region with some erythema surrounding diverticuli which were felt to be the source of acute blood loss. No active bleeding was identified. A single 5 mm polyp was identified 60 cm from the anal verge and removed. Pathology is pending at discharge. Laboratory Laboratory Tests Test 12/17/16 03:58 12/17/16 07:55 12/17/16 17:59 12/18/16 04:00 Hemoglobin 7.7GM/DL (12-16) 7.8GM/DL (12-16) 7.3GM/DL (12-16) 7.3GM/DL (12-16) White Blood Count 6.6T/MM3 (4.5-11.0) 6.9T/MM3 (4.5-11.0) Red Blood Count 2.69M/MM3 (4.00-5.20) 2.55M/MM3 (4.00-5.20) Hematocrit 24.0% (36-46) 23.2% (36-46) 23.2% (36-46) Mean Corpuscular Volume 89.2UM3 (80-100) 91.0UM3 (80-100) Mean Corpuscular Hemoglobin 29.0UUG (26-34) 28.6UUG (26-34) Mean Corpuscular Hemoglobin Concent 32.5GM/DL (31-37) 31.5GM/DL (31-37) RDW Standard Deviation 48.1FL (36.9-50.2) 49.8FL (36.9-50.2) Platelet Count 199T/MM3 (130-400) 199T/MM3 (130-400) Mean Platelet Volume 10.4UM3 (9.4-12.4) 10.7UM3 (9.4-12.4) Immature Granulocyte % (Auto) 0.2% (0.0-0.5) 0.3% (0.0-0.5) Neutrophils (%) (Auto) 65.8% (33-66) 60.1% (33-66) Lymphocytes (%) (Auto) 27.5% (23-45) 31.8% (23-45) Monocytes (%) (Auto) 4.5% (0-9.0) 5.8% (0-9.0) Eosinophils (%) (Auto) 1.5% (0-4) 1.7% (0-4) Basophils (%) (Auto) 0.5% (0-2) 0.3% (0-2) Absolute Immature Granulocyte (auto 0.01T/MM3 (0.00-0.03) 0.02T/MM3 (0.00-0.03) Absolute Neutrophils (auto) 4.4T/MM3 (1.8-7.7) 4.1T/MM3 (1.8-7.7) Absolute Lymphocytes (auto) 1.8T/MM3 (1-4.8) 2.2T/MM3 (1-4.8) Absolute Monocytes (auto) 0.3T/MM3 (0-0.8) 0.4T/MM3 (0-0.8) Absolute Eosinophils (auto) 0.1T/MM3 (0-0.5) 0.1T/MM3 (0-0.5) Absolute Basophils (auto) 0.0T/MM3 (0-0.2) 0.0T/MM3 (0-0.2) Prothromb Time International Ratio 1.66 (0.76-1.04) 1.20 (0.76-1.04) Turbidity < 20 (0-20) < 20 (0-20) Sodium Level 145MEQ/L (134-144) 143MEQ/L (134-144) Potassium Level 3.9MEQ/L (3.6-5) 4.0MEQ/L (3.6-5) Chloride Level 114MEQ/L (98-107) 112MEQ/L (98-107) Carbon Dioxide Level 21MEQ/L (22-30) 25MEQ/L (22-30) Anion Gap 10MEQ/L (5-15) 6MEQ/L (5-15) Blood Urea Nitrogen 10.0MG/DL (7-17) 8.0MG/DL (7-17) Creatinine 0.9MG/DL (0.7-1.2) 1.1MG/DL (0.7-1.2) Glomerular Filtration Rate Calc 65 52 BUN/Creatinine Ratio 11RATIO (6-26) 7RATIO (6-26) Glucose Level 107MG/DL (65-110) 115MG/DL (65-110) Calculated Osmolality 278MOSM/KG (261-280) 274MOSM/KG (261-280) Calcium Level 7.5MG/DL (8.4-10.2) 7.6MG/DL (8.4-10.2) Total Bilirubin 0.50MG/DL (0.20-1.30) Icterus Index < 2 (0-7) < 2 (0-7) Aspartate Amino Transf (AST/SGOT) 24U/L (14-36) Alanine Aminotransferase (ALT/SGPT) 33U/L (9-52) Alkaline Phosphatase 40U/L (38-126) Total Protein 5.2G/DL (6.3-8.2) Albumin 2.7G/DL (3.5-5.0) Globulin 2.5G/DL (2.4-3.6) Albumin/Globulin Ratio 1.1RATIO (1.1-2.2) Chemistry Specimen Hemolysis < 15 (0-25) < 15 (0-25) Admission hemoglobin 8.6 dropping to 6.7 early the next morning prompting transfusion of one unit of packed red blood cells. Admission INR 2.71 History of Present Illness Patient is a 56 yr old female who started having bloody stools on Wednesday. She did see her primary care provider, Dr. Pandya. At that time she was found to have hemoglobin of 11 and INR of 2.7. Patient is chronically anticoagulated on Coumadin due to a congenital call aortic stenosis and titanium valve replacement in 2011. She continued to have 6-7 bloody stools yesterday and presented to the emergency room last evening for further evaluation and treatment. In the ER, hemoglobin was found to be 8.6, RBCs 3.09, he the BBC is 10.3, hematocrit 26.8, platelet count 271. Sodium 141, potassium 4.3, BUN 29, creatinine 1.1, glucose 125. INR at that time was 2.86. Urinalysis was obtained that was unremarkable. She initially was found to be tachycardic up to 118, however, has continued in sinus rhythm. Admission blood pressure was stable 116/72. Room air saturations 99%. Given findings of acute GI bleeding with decrease in hemoglobin and chronic anticoagulation. The hospitalist services were contacted and telemedicine physician accepted patient for inpatient admission for further evaluation and treatment. As seen this morning by myself on initial examination. She is alert and oriented and pleasant. She currently is without complaints. She does report that she sees Dr Quentin Starr for cardiology care. She recently had a Holter monitor for 30 days and was found to be intermittently in atrial fibrillation. She reports she was started on a beta ami at that time. Denies nausea or abdominal pain. Has not had any bloody stools since admission. Hemodynamically, patient appears to be stable. Did review orthostatic vital signs from approximately midnight. 123/71 with pulse 102, sitting 122/67 with pulse of 106, standing 104/69, pulse increased to 118. This morning her hemoglobin did drop down to 6.7. We did discuss advanced directives and patient was verified she once to be a full code Hospital Course Mrs. Zepeda was admitted to the acute hospitalist service with acute GI bleed believed to be of lower origin based on characteristics. The patient had no further rectal bleeding following admission. She was placed on a proton pump inhibitor on admission but this was discontinued following endoscopic studies. Patient was seen in consultation by Dr. Bernard. Warfarin was held and reversed with vitamin K; aspirin was also held. Serial hemoglobins were followed and the patient was transfused with one unit of packed red blood cells after hemoglobin dropped to 6.7 early on the morning of 12/16. Following transfusion hemoglobin improved to approximately 8 and remained stable thereafter although it dropped slightly following endoscopic studies with discharge hemoglobin of 7.3. EGD was unremarkable on 12/17; a small polyp was removed at colonoscopy and diverticulosis identified with stigmata suggesting diverticular bleed. Diet was advanced following endoscopic studies and the patient was felt stable for discharge on 12/18. On 12/18 the patient was tolerating a regular diet without difficulty. She denied lightheadedness and is had no further rectal bleeding. She was anxious for discharge at this time. Abdominal examination was unremarkable with good bowel sounds present. Breath sounds were clear and mechanical S2 click present. INR 1.2 and hemoglobin 7.3. Patient is advised to resume warfarin at usual home dose and have INR checked on Wednesday, anticipate INR will come up gradually and that she will be somewhat warfarin resistant due to vitamin K administered to control GI bleeding. Iron supplementation was also recommended. Stable for discharge at this time. Patient follow-up with Dr. Pandya within 1 week for reassessment. >30 minutes spent on patient care and discharge care coordination today on the date of discharge. -- Problems: (1) GI bleed Status: Acute Assessment & Plan: Likely lower GI bleed (2) Acute blood loss anemia Status: Acute Assessment & Plan: 1 unit packed red blood cells transfused 12/16/16 (3) Chronic anticoagulation Status: Chronic (4) Atrial fibrillation Status: Chronic (5) HTN (hypertension) Status: Chronic (6) Congenital heart valve abnormality Status: Chronic Assessment & Plan: Aortic stenosis (7) Aortic valve replaced Status: Chronic Assessment & Plan: [place]/Titanium heart valve, 2011 (8) IBS (irritable bowel syndrome) Status: Chronic (9) History of Richar fundoplication Status: Resolved (10) Obesity (BMI 30-39.9) Status: Chronic DVT Prophylaxis: SCD'S Code Status Full Code Home Meds Active Scripts Ferrous Sulfate (Feosol) 325 Mg Tablet, 1 TAB PO WB, #60 TAB BEST WITH FOOD. Prov:AZEB PAREKH MD 12/18/16 Polyethylene Glycol 3350 (Miralax) 17 Gm Powd.pack, 1 PACKET PO DAILY, #30 PACKET 3 Refills Prov:AZEB PAREKH MD 12/18/16 Reported Medications Lactobacillus Combination No.4 (Probiotic) 1 Each Capsule, 2 CAP PO BID 12/15/16 Metoprolol Tartrate (Metoprolol Tartrate) 25 Mg Tablet, 25 MG PO WB, TAB Take 1 tab, by mouth, one time a day (with breakfast). 12/15/16 Warfarin Sodium (Warfarin Sodium) 5 Mg Tablet, 5 MG PO Fr@HS 10/27/16 Warfarin Sodium (Warfarin Sodium) 2.5 Mg Tablet, 2.5 MG PO [id number]@HS 10/27/16 Metoprolol Tartrate (Metoprolol Tartrate) 50 Mg Tablet, 50 MG PO HS 10/27/16 Dicyclomine HCl (Dicyclomine HCl) 10 Mg Capsule, 10 MG PO BID 10/27/16 Amitriptyline HCl (Amitriptyline HCl) 50 Mg Tablet, 50 MG PO HS 10/27/16 Discontinued Reported Medications Aspirin (Gabriel Chewable) 81 Mg Tab.chew, 81 MG PO DAILY 10/27/16 Face to Face Encounter I met with patient on the day of dismissal and discussed follow up appointments , medications, and safety plan. Discharge Disposition Home Copies To 1: CLAUDIA BERNARD MD, FACS, CWS; PIOTR PANDYA MD Documentation Requirements Anemia Anemia Etiology: Blood Loss Anemia Acuity: Acute BMI Low or High Assoc. dx for low or high BMI: Severe Obesity 35-39.9 AZEB PAREKH MD Dec 18, 2016 15:24
== END 2016-12-18 12:30 | disposition home or self-care (01) | DRG 378 ==
LOC: ED 20:01 → EDHOLD 22:45 → MED 12-16 00:10
PROVIDERS: ADMIT Emergency Medicine; ATTEND Internal Medicine
PROC: 30233N1 Transfusion of Nonautologous Red Blood Cells into Peripheral Vein, Percutaneous Approach (ICD-10-PCS; 2016-12-16)
PROC: 0DJ08ZZ Inspection of Upper Intestinal Tract, Via Natural or Artificial Opening Endoscopic (ICD-10-PCS; principal; 2016-12-17 13:03)
PROC: 0DBM8ZX Excision of Descending Colon, Via Natural or Artificial Opening Endoscopic, Diagnostic (ICD-10-PCS; 2016-12-17 13:03)
DX: K57.31 Diverticulosis of large intestine without perforation or abscess with bleeding (principal); D62 Acute posthemorrhagic anemia; Q23.0 Congenital stenosis of aortic valve; I48.91 Unspecified atrial fibrillation; E66.9 Obesity, unspecified; I10 Essential (primary) hypertension; K21.9 Gastro-esophageal reflux disease without esophagitis; K58.9 Irritable bowel syndrome, unspecified; Z79.01 Long term (current) use of anticoagulants; Z95.2 Presence of prosthetic heart valve; Z79.82 Long term (current) use of aspirin; Z68.39 Body mass index [BMI] 39.0-39.9, adult
CPT/HCPCS: 36415; 80048; 80053; 81003; 85014; 85018; 85025; 85610; 86850; 86900; 86901; 86920; 86922